=== PATIENT | male | born 1975 | race Caucasian/White ===

== ENCOUNTER 2017-01-08 22:11 | Emergency (ER) | payer OTHER ==
[~2017-01-08] VITALS: Ht 188 cm; Wt 77.6 kg
[~2017-01-08 22:11] MED LIST: CEPH500C3 PO
[2017-01-08 22:15] VITALS: BP 123/85; PULSE 95; RESP 18; TEMP 99.2; O2SAT 99
--- NOTE | 2017-01-08 22:22 | PD ---
HPI . Boil on back for 3 days Chief Complaint: Skin Problem Time Seen by Provider: 22:22 Travel History International Travel<30 days: No Contact w/Intl Traveler<30days: No Traveled to known affect area: No History of Present Illness HPI 41-year-old male with past medical history of anxiety and depression, Hodgkin's lymphoma and IV drug use issue here with complaints of a boil on his back for 3 days. He has had them in the past and had to have them lanced. He denies any recent insect bite or trauma to the area. He denies fever, chills, cough, cold symptoms, shortness of breath, nausea, vomiting, or abdominal pain. 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) Eye Surgery: No Genitourinary Surgery: No Gynecologic Surgery: No Oral Surgery: No Thoracic Surgery: Yes (NECK BIOPSY FOR CANCER OF LYMPH NODES) Other Surgery: Yes (MULTIPLE BIOPSYS- INFUSA PORTS PLASED AND REMOVEDx2) Social History Alcohol Use: Yes (OCCASIONAL) Tobacco Use: Yes (1/2 PPD) Substance Use: Yes (DILAUDID "RECENTLY, NOT EVERYDAY" 01/30) Allergies-Medications (Allergen,Severity, Reaction): Coded Allergies: Floxcin (Verified Allergy, Severe, Itching, 01/08/17) STATES HIS EYES GET ITCHY SWOLLEN AND RED Reported Meds & Prescriptions Reported Meds & Active Scripts Active Keflex (Cephalexin) 500 Mg Cap 500 Mg PO Q6H 10 Days Bactrim DS (Sulfamethoxazole-Trimethoprim) 800-160 Mg Tab 1 Tab PO BID Review of Systems General / Constitutional: No: Fever Eyes: No: Visual changes HENT: No: Headaches Cardiovascular: No: Chest Pain or Discomfort Respiratory: No: Shortness of Breath Gastrointestinal: No: Abdominal Pain Genitourinary: No: Dysuria Musculoskeletal: No: Pain Skin: Positive Other (abscess upper back), No Rash Neurologic: No: Weakness Psychiatric: No: Depression Endocrine: No: Polydipsia Hematologic/Lymphatic: No: Easy Bruising Physical Exam Narrative GENERAL: AAO x 3, no acute distress, Well-nourished, well-developed patient. SKIN: Warm and dry. No visible rashes or bruising. + abscess on the upper back, indurated, fluctuant, tender to touch, warm, erythematous HEAD: Normocephalic and atraumatic. EYES: No scleral icterus. No injection or drainage. ENT: No nasal drainage noted. Mucous membranes pink. Airway patent. NECK: Supple, trachea midline. No JVD. CARDIOVASCULAR: Regular rate and rhythm without murmurs, gallops, or rubs. RESPIRATORY: Breath sounds equal bilaterally. No accessory muscle use. No rhonchi or rales. GASTROINTESTINAL: Abdomen soft, non-tender, nondistended. EXTREMITIES: No cyanosis or edema. BACK: Nontender without obvious deformity. No CVA tenderness. PSYCH: AAO x 3, normal affect. After the risks and benefits were discussed the following procedure was performed: INCISION AND DRAINAGE OF ABSCESS: The area was prepped and was sterilely draped. A subcutaneous wheal of 1 % Xylocaine with a total number 5 mL was used to anesthetize the area. The area was properly anesthetized. A number 11 scalpel was used to make a 1-cm incision across the area of the abscess. Cultures were not obtained as red blood was only present. The abscess was drained an irrigated with normal saline. No packing applied. Sterile dressing applied. Advised to change dressing twice daily. Data Data Last Documented VS Vital Signs Date Time Temp Pulse Resp B/P Pulse Ox O2 Delivery O2 Flow Rate FiO2 01/08/17 22:20 01/08/17 22:15 99.2 95 18 99 Orders Lidocaine 1% Inj (50 Ml) (Xylocaine 1% I (01/08/17 22:30) Ketorolac Inj (Toradol Inj) (01/08/17 22:45) MDM Medical Decision Making Medical Screen Exam Complete: Yes Emergency Medical Condition: Yes Medical Record Reviewed: Yes (last admission for abscess requiring IV antibiotics) Differential Diagnosis abscess, cellulitis, less likely lipoma or sebaceous cyst Narrative Course 41-year-old male with past medical history of anxiety and depression, Hodgkin's lymphoma and IV drug use issue here with complaints of a boil on his back for 3 days. He has had them in the past and had to have them lanced. He denies any recent insect bite or trauma to the area. He denies fever, chills, cough, cold symptoms, shortness of breath, nausea, vomiting, or abdominal pain. ' Patient consented to I&D of abscess. patient given toradol for pain in ED. I & D performed. He tolerated without incident. start bactrim and keflex. Advised if area starts to worsen, to return to ED sooner. Patient verbalized understanding of instructions, questions were answered, and thanked me for their care. I advised them if their condition worsens, please return to the nearest emergency room for further care. Diagnosis Primary Impression: Cutaneous abscess of back [any part, except buttock] Additional Impressions: Cellulitis of upper back excluding scapular region Cellulitis of mid back region Patient Instructions: Abscess (ED), Cellulitis (ED), General Instructions Additional Instructions: As we discussed, start antibiotics immediately. If area starts to worsen, please come in again. If you develop fever or chills, come back to the emergency room. Keep area clean and change dressing twice a day. Scripts Cephalexin (Keflex)500 Mg Ubx400 Mg PO Q6H 10 Days Ref 0 Prov:Rebekah Lopez 01/08/17 Sulfamethoxazole-Trimethoprim (Bactrim DS)800-160 Mg Tab1 Tab PO BID #20 TAB Prov:Rebekah Lopez 01/08/17 Disposition: 01 DISCHARGE HOME Condition: Stable Rebekah Lopez Jan 08, 2017 22:22
[2017-01-08] MEDS ORDERED: CEPH-460 PO (22:30)
[2017-01-08] MEDS ORDERED: LIDOCAINE HCL 1% 50 ML VIAL INFIL ONE (22:30)
[2017-01-08] MEDS ORDERED: BACT800T5 PO (22:30)
[2017-01-08] MEDS ORDERED: KETOROLAC TROMETHAMINE 60 MG/2 ML (IM) VIAL IM ONE (22:45)
== END 2017-01-08 22:59 | disposition home or self-care (01) ==
LOC: PHEFT 22:11
DX: L02.212 Cutaneous abscess of back [any part, except buttock and flank] (principal); F41.8 Other specified anxiety disorders; F11.20 Opioid dependence, uncomplicated
CPT/HCPCS: 10060; 96372; 99283; J1885

== ENCOUNTER 2017-01-09 19:13 | Emergency (ER) | payer OTHER ==
[~2017-01-09] VITALS: Ht 188 cm; Wt 78.5 kg
[~2017-01-09 19:13] MED LIST changes: +BACT800T5 PO; +CEPH-460 PO
[2017-01-09 19:36] VITALS: BP 129/90; PULSE 108; RESP 18; TEMP 99.2; O2SAT 100
--- NOTE | 2017-01-09 19:50 | PD ---
HPI . seen yesterday for skin infection, has not filled antibiotics Chief Complaint: Skin Problem Time Seen by Provider: 19:45 Travel History International Travel<30 days: No Contact w/Intl Traveler<30days: No Traveled to known affect area: No History of Present Illness HPI 41-year-old male seen yesterday here in the ED by me with abscess status post I and D with minimal drainage here with complaints of pain. Patient states he has some social issues and does not have any transportation therefore he was unable to fill his antibiotics. He tells me he has no idea of when he will be able to get these medicines. He does live with his mother and she was able to change his dressing today; however he states he doesn't know if she will be able to pick his medications up as she works. He is requesting something for pain. He also wants a note for work. He says, "I can't believe I am not being admitted." I explained to him that he needs to get his medicines and he would get better. He states everyone has different social situations and he can't help it. 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) Eye Surgery: No Genitourinary Surgery: No Gynecologic Surgery: No Oral Surgery: No Thoracic Surgery: Yes (NECK BIOPSY FOR CANCER OF LYMPH NODES) Other Surgery: Yes (MULTIPLE BIOPSYS- INFUSA PORTS PLASED AND REMOVEDx2) Social History Alcohol Use: Yes (OCCASIONAL) Tobacco Use: Yes (1PK) Substance Use: Yes (DILAUDID "RECENTLY, NOT EVERYDAY" 01/30) Allergies-Medications (Allergen,Severity, Reaction): Coded Allergies: Floxcin (Verified Allergy, Severe, Itching, 01/09/17) STATES HIS EYES GET ITCHY SWOLLEN AND RED Reported Meds & Prescriptions Reported Meds & Active Scripts Active Keflex (Cephalexin) 500 Mg Cap 500 Mg PO Q6H 10 Days Bactrim DS (Sulfamethoxazole-Trimethoprim) 800-160 Mg Tab 1 Tab PO BID Physical Exam Narrative GENERAL: AAO x 3, no acute distress, Well-nourished, well-developed patient. SKIN: Warm and dry. No visible rashes or bruising. There is a superficial indurated area on the mid back without any fluctuance today. Surround erythema and swelling have lessened since yesterday.There is no evidence of purulent drainage. area is still warm to touch. no streaking present. dressing was c/d/i HEAD: Normocephalic and atraumatic. EYES: No scleral icterus. No injection or drainage. ENT: No nasal drainage noted. Mucous membranes pink. Airway patent. NECK: Supple, trachea midline. No JVD. CARDIOVASCULAR: Regular rate and rhythm without murmurs, gallops, or rubs. RESPIRATORY: Breath sounds equal bilaterally. No accessory muscle use. No rhonchi or rales. GASTROINTESTINAL: Abdomen soft, non-tender, nondistended. EXTREMITIES: No cyanosis or edema. BACK: Nontender without obvious deformity. No CVA tenderness. PSYCH: AAO x 3, normal affect. Data Data Last Documented VS Vital Signs Date Time Temp Pulse Resp B/P Pulse Ox O2 Delivery O2 Flow Rate FiO2 01/09/17 20:11 98.3 91 18 99 Room Air 01/09/17 19:44 Orders Ceftriaxone Inj (Rocephin Inj) (01/09/17 20:00) Lidocaine 1% Inj (50 Ml) (Xylocaine 1% I (01/09/17 20:00) Tramadol (Ultram) (01/09/17 20:15) MDM Medical Decision Making Medical Screen Exam Complete: Yes Emergency Medical Condition: Yes Medical Record Reviewed: Yes Differential Diagnosis superficial cellulitis, abscess collection, less likely systemic infection Narrative Course 41-year-old male seen yesterday here in the ED by me with abscess status post I and D with minimal drainage here with complaints of pain. Patient states he has some social issues and does not have any transportation therefore he was unable to fill his antibiotics. He tells me he has no idea of when he will be able to get these medicines. He does live with his mother and she was able to change his dressing today; however he states he doesn't know if she will be able to pick his medications up as she works. He is requesting something for pain. He also wants a note for work. He says, "I can't believe I am not being admitted." I explained to him that he needs to get his medicines and he would get better. He states everyone has different social situations and he can't help it. Patient seen and examined. Cellulitis/abscess is smaller than yesterday. still with surround erythema and warmth. Rocephin in ED today along with tramadol for pain. Advised to get rx filled. He states he still has prescriptions. Advised to use Ibuprofen for pain control. recheck temp 98.3, hr 91 (afebrile, no tachy, exam is improved from yesterday) no need for admission: stressed importance of getting medicines filled. Return in 2-3 days for recheck or f/u with primary care provider. Prior to leaving patient asks nurse for his medicines. He tells her that he cannot travel 2 miles to get them from [place]. He says he has no friends or family who can get them for him. He wanted to be admitted to get his medicines. He was told to try to get his meds and establish with the [facility] or [facility]. I am hoping he will get his antibiotics filled. If he returns for wound check and has not filled his meds. He will likely need to be admitted for antibiotics or given additional Rocephin. Diagnosis Primary Impression: Cellulitis of mid back region Patient Instructions: General Instructions Additional Instructions: Please return to emergency department if your symptoms return or worsen. Follow up with your primary care provider. Take medications as prescribed. PLEASE GET YOUR ANTIBIOTICS FILLED AND START THEM IMMEDIATELY. YOUR SKIN INFECTION WILL NOT IMPROVE IF YOU DO NOT TAKE THE MEDICINES. RETURN TO EMERGENCY DEPARTMENT IN 2-3 DAYS FOR A RECHECK OF THIS AREA. IF YOU DEVELOP FEVER OR STREAKING RETURN TO ED SOONER. Med/Other Pt SpecificInfo: No Change to Meds Disposition: 01 DISCHARGE HOME Condition: Stable Rebekah Lopez Jan 09, 2017 19:50
[2017-01-09] MEDS ORDERED: LIDOCAINE HCL 1% 50 ML VIAL XX ONE (20:00)
[2017-01-09 20:11] VITALS: PULSE 91; RESP 18; TEMP 98.3; O2SAT 99
[2017-01-09] MEDS ORDERED: traMADol HCL 50 MG TAB PO ONE (20:15)
== END 2017-01-09 20:40 | disposition home or self-care (01) ==
LOC: PHEFT 19:13
DX: L03.312 Cellulitis of back [any part except buttock and flank] (principal)
CPT/HCPCS: 96372; 99282; J0696

== ENCOUNTER 2017-03-14 19:18 | Emergency (ER) | payer OTHER ==
[~2017-03-14] VITALS: Ht 188 cm; Wt 80.0 kg
[~2017-03-14 19:18] MED LIST changes: -CEPH500C3 PO
[2017-03-14 19:45] VITALS: BP 128/81; PULSE 93; RESP 18; TEMP 98.2; O2SAT 98
[2017-03-14] MEDS ORDERED: SODIUM CHLOR 0.9% 1000 ML INJ 1,000 ML IV SCH (20:12)
--- NOTE | 2017-03-14 20:12 | PD ---
HPI Chief Complaint: Abdominal Pain Time Seen by Provider: 20:09 Travel History International Travel<30 days: No Contact w/Intl Traveler<30days: No Traveled to known affect area: No History of Present Illness HPI 42-year-old male presents to the emergency department for evaluation of one day of lower abdominal pain. Patient states he awakened this morning with discomfort which is progressively worsened. Patient had associated nausea without vomiting. Patient had associated diarrhea multiple episodes without gross blood or melena. Patient denies fever or chills. Does not report anorexia. Denies any dietary indiscretion well water ingestion or foreign travel. No other persons with similar symptoms. Patient rates pain 9-10 over 10 in intensity. Patient denies any referred pain to the groin testicles and denies any penile discharge. Patient denies dysuria frequency urgency hematuria or flank pain. Patient's had no respiratory illness symptoms. Patient is unable to identify exacerbating or alleviating factors. Patient has taken no medications. PFSH Past Medical History Narrative Medical Anxiety depression, Hodgkin's lymphoma w/ chemotherapy radiation therapy and remission 2007, [id number] insertion and removal, lymph node biopsy Anxiety: Yes Depression: Yes Cancer: Yes (LYMPH NODES) Cardiovascular Problems: No Chemotherapy: Yes (LYMPH NODE) Diminished Hearing: No Endocrine: No Genitourinary: No Musculoskeletal: No Neurologic: No Reproductive: No Respiratory: No Immunizations Current: Yes Radiation Therapy: Yes (LYMPH NODES) Tetanus Vaccination: < 5 Years Influenza Vaccination: Yes Past Surgical History 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) Eye Surgery: No Genitourinary Surgery: No Gynecologic Surgery: No Oral Surgery: No Thoracic Surgery: Yes (NECK BIOPSY FOR CANCER OF LYMPH NODES) Other Surgery: Yes (MULTIPLE BIOPSYS- INFUSA PORTS PLASED AND REMOVEDx2) Social History Alcohol Use: Yes (OCCASIONAL) Tobacco Use: Yes (1PK) Substance Use: Yes (DILAUDID "RECENTLY, NOT EVERYDAY" 01/30) Allergies-Medications (Allergen,Severity, Reaction): Coded Allergies: Floxcin (Verified Allergy, Severe, Itching, 03/14/17) STATES HIS EYES GET ITCHY SWOLLEN AND RED Reported Meds & Prescriptions Reported Meds & Active Scripts Active No Active Prescriptions or Reported Medications Review of Systems Except as stated in HPI: all other systems reviewed are Neg General / Constitutional: No: Fever, Chills Eyes: No: Visual changes HENT: No: Congestion Cardiovascular: No: Chest Pain or Discomfort Respiratory: No: Shortness of Breath Gastrointestinal: Positive: Nausea, Diarrhea, Abdominal Pain, No: Vomiting Genitourinary: No: Dysuria, Flank Pain Musculoskeletal: No: Myalgias, Arthralgias Skin: No Rash Neurologic: No: Weakness, Dizziness, Syncope, Focal Abnormalities, Coordination Problem Psychiatric: No: Anxiety Endocrine: No: Heat Intolerance Hematologic/Lymphatic: No: Easy Bruising Physical Exam Narrative GENERAL: Well-developed well-nourished female in no acute distress no respiratory distress SKIN: Warm and dry. HEAD: Normocephalic. EYES: No scleral icterus. No injection or drainage. NECK: Supple, trachea midline. No JVD or lymphadenopathy. CARDIOVASCULAR: Regular rate and rhythm without murmurs, gallops, or rubs. RESPIRATORY: Breath sounds equal bilaterally. No accessory muscle use. GASTROINTESTINAL: Abdomen soft, mildly diffusely tender without guarding or rebound, nondistended. MUSCULOSKELETAL: No cyanosis, or edema. BACK: Nontender without obvious deformity. No CVA tenderness. Data Data Last Documented VS Vital Signs Date Time Temp Pulse Resp B/P Pulse Ox O2 Delivery O2 Flow Rate FiO2 03/14/17 21:12 85 18 136/74 98 Room Air 03/14/17 19:45 98.2 Orders Complete Blood Count With Diff (03/14/17 20:12) Comprehensive Metabolic Panel (03/14/17 20:12) Lipase (03/14/17 20:12) Urinalysis - C+S If Indicated (03/14/17 20:12) Ct Abd/Pel W Iv Contrast(Rout) (03/14/17 20:12) Iv Access Insert/Monitor (03/14/17 20:12) Ecg Monitoring (03/14/17 20:12) Oximetry (03/14/17 20:12) Ondansetron Inj (Zofran Inj) (03/14/17 20:15) Pantoprazole Inj (Protonix Inj) (03/14/17 20:15) Sodium Chlor 0.9% 1000 Ml Inj (Ns 1000 M (03/14/17 20:12) Sodium Chloride 0.9% Flush (Ns Flush) (03/14/17 20:15) Iohexol 350 Inj (Omnipaque 350 Inj) (03/14/17 21:12) Labs Laboratory Tests Test 03/14/17 20:25 White Blood Count 8.7 TH/MM3 Red Blood Count 5.41 MIL/MM3 Hemoglobin 16.5 GM/DL Hematocrit 49.8 % Mean Corpuscular Volume 92.0 FL Mean Corpuscular Hemoglobin 30.5 PG Mean Corpuscular Hemoglobin 33.2 % Concent Red Cell Distribution Width 13.2 % Platelet Count 223 TH/MM3 Mean Platelet Volume 8.0 FL Neutrophils (%) (Auto) 67.3 % Lymphocytes (%) (Auto) 23.7 % Monocytes (%) (Auto) 6.8 % Eosinophils (%) (Auto) 1.4 % Basophils (%) (Auto) 0.8 % Neutrophils # (Auto) 5.8 TH/MM3 Lymphocytes # (Auto) 2.1 TH/MM3 Monocytes # (Auto) 0.6 TH/MM3 Eosinophils # (Auto) 0.1 TH/MM3 Basophils # (Auto) 0.1 TH/MM3 CBC Comment DIFF FINAL Differential Comment Sodium Level 140 MEQ/L Potassium Level 3.6 MEQ/L Chloride Level 103 MEQ/L Carbon Dioxide Level 28.8 MEQ/L Anion Gap 8 MEQ/L Blood Urea Nitrogen 7 MG/DL Creatinine 1.10 MG/DL Estimat Glomerular Filtration 74 ML/MIN Rate Random Glucose 88 MG/DL Calcium Level 9.0 MG/DL Total Bilirubin 0.3 MG/DL Aspartate Amino Transf 33 U/L (AST/SGOT) Alanine Aminotransferase 60 U/L (ALT/SGPT) Alkaline Phosphatase 38 U/L Total Protein 7.3 GM/DL Albumin 3.6 GM/DL Lipase 165 U/L MDM Medical Decision Making Medical Screen Exam Complete: Yes Emergency Medical Condition: Yes Medical Record Reviewed: Yes Interpretation(s) Vital Signs Date Time Temp Pulse Resp B/P Pulse Ox O2 Delivery O2 Flow Rate FiO2 03/14/17 21:12 85 18 136/74 98 Room Air 03/14/17 20:27 18 96 Room Air 03/14/17 19:56 18 03/14/17 19:45 98.2 93 18 128/81 98 Last Impressions Abdomen/Pelvis CT 03/14/172011 Signed Impressions: Service Date/Time: Tuesday, March 14, 2017 21:03 - CONCLUSION: 1. Mild atherosclerotic disease. Nicholas A. Germán, MD CBC & BMP Diagram 03/14/17 20:25 Differential Diagnosis Abdominal pain, colitis, gastroenteritis, UTI, urethritis, pancreatitis, atypical appendicitis also to consider gastritis peptic ulcer disease biliary colic Narrative Course IV access obtained specimens collected and sent for resulting patient administered Zofran and [address] abdomen and pelvis ordered Diagnosis Primary Impression: Gastroenteritis Referrals: Primary Care Physician call for appointment Patient Instructions: General Instructions Departure Forms: Tests/Procedures, Work Release Special Instructions: no work x 2 days Additional Instructions: Follow clear liquid diet for next 12-24 hours advance as tolerated to bland/ Chapo then regular diet avoiding fried and fatty foods Takes Zofran as prescribed as needed for nausea and/or vomiting Take acetaminophen/Tylenol as needed for fever 100.4F or greater or for minor pain Follow-up with your primary care provider call office in a.m. to schedule follow -up appointment Return to the emergency department for any concerns or change in condition Med/Other Pt SpecificInfo: Prescription(s) given Scripts Ondansetron Odt (Zofran Odt)4 Mg Tab4 Mg SL Q6HR PRN (Nausea/Vomiting) #10 TAB Ref 0 Prov:Sunitha Cheatham MD 03/14/17 Disposition: 01 DISCHARGE HOME Condition: Stable Sunitha Cheatham MD Mar 14, 2017 20:11
[2017-03-14] MEDS ORDERED: SODIUM CHLORIDE 0.9% FLUSH 10 ML FLUSH IV FLUSH PRN (20:15)
[2017-03-14] MEDS ORDERED: PANTOPRAZOLE SODIUM 40 MG VIAL IVP ONE (20:15)
[2017-03-14] MEDS ORDERED: ONDANSETRON HCL 4 MG/2 ML VIAL IVP ONE (20:15)
[2017-03-14 20:27] VITALS: RESP 18; O2SAT 96
[2017-03-14 20:35] LABS: AUTOMATED NEUTROPHIL # 5.8 TH/MM3 (1.8-7.7); BASOPHIL # 0.1 TH/MM3 (0-0.2); BASOPHIL % 0.8 % (0.0-2.0); EOSINOPHIL # 0.1 TH/MM3 (0-0.4); EOSINOPHIL % 1.4 % (0.0-4.0); HEMATOCRIT 49.8 % (39.0-51.0); HEMO FLAGS DIFF FINAL; LYMPH % 23.7 % (9.0-44.0); LYMPHOCYTE # 2.1 TH/MM3 (1.0-4.8); MEAN CORPUSCULAR HEMOGLOBIN 30.5 PG (27.0-34.0); MEAN CORPUSCULAR HGB CONC 33.2 % (32.0-36.0); MONO % 6.8 % (0.0-8.0); NEUT % 67.3 % (16.0-70.0); PLATELET COUNT 223 TH/MM3 (150-450); RED BLOOD COUNT 5.41 MIL/MM3 (4.50-5.90); RED CELL DISTRIBUTION WIDTH 13.2 % (11.6-17.2); WHITE BLOOD COUNT 8.7 TH/MM3 (4.0-11.0)
[2017-03-14 20:52] LABS: CHLORIDE 103 MEQ/L (98-107); POTASSIUM 3.6 MEQ/L (3.5-5.1); SODIUM (NA) 140 MEQ/L (136-145)
[2017-03-14 20:56] LABS: ANION GAP 8 MEQ/L (5-15); BICARBONATE 28.8 MEQ/L (21.0-32.0); BLOOD UREA NITROGEN 7 MG/DL (7-18)
[2017-03-14 20:59] LABS: ALT (GPT) 60 U/L (12-78); AST (GOT) 33 U/L (15-37); GLOMERULAR FILTRATION RATE 74 ML/MIN (>89)
[2017-03-14 21:01] LABS: TOTAL BILIRUBIN ADULT 0.3 MG/DL (0.2-1.0)
[2017-03-14 21:02] LABS: ALKALINE PHOSPHATASE 38 U/L (45-117)
[2017-03-14 21:12] VITALS: BP 136/74; PULSE 85; RESP 18; O2SAT 98
[2017-03-14] MEDS ORDERED: IOHEXOL 350 MG/ML 10 ML VIAL (for RAD DIAG) IV ONE (21:12)
--- NOTE | 2017-03-14 21:27 | RADHPO ---
EXAM DATE/TIME: 03/14/2017 21:03 [facility] COMPARISON: No previous studies available for comparison. INDICATIONS : Left abdominal pain. IV CONTRAST: 100 cc Omnipaque 350 (iohexol) IV ORAL CONTRAST: No oral contrast ingested. RADIATION DOSE: 7.80 CTDIvol (mGy) MEDICAL HISTORY : Lymphoma. SURGICAL HISTORY : None. ENCOUNTER: Initial ACUITY: 1 day PAIN SCALE: 10/10 LOCATION: Left abdomen. TECHNIQUE: Volumetric scanning of the abdomen and pelvis was performed. Using automated exposure control and ad justment of the mA and/or kV according to patient size, radiation dose was kept as low as reasonably achievable to obtain optimal diagnostic quality images. FINDINGS: LOWER LUNGS: The visualized lower lungs are clear. LIVER: Homogeneous density without lesion. There is no dilation of the biliary tree. No calcified gallston es. SPLEEN: Normal size without lesion. PANCREAS: Within normal limits. KIDNEYS: Normal in size and shape. There is no mass, stone or hydronephrosis. ADRENAL GLANDS: Within normal limits. VASCULAR: No aneurysm. Scattered atherosclerotic calcifications are noted of the aorta and iliac vessels. BOWEL/MESENTERY: The stomach, small bowel, and colon demonstrate no acute abnormality. There is no free intraperitone al air or fluid. ABDOMINAL WALL: Within normal limits. RETROPERITONEUM: There is no lymphadenopathy. BLADDER: No wall thickening or mass. REPRODUCTIVE: Within normal limits. INGUINAL: There is no lymphadenopathy or hernia. MUSCULOSKELETAL: Within normal limits for patient age. CONCLUSION: 1. Mild atherosclerotic disease. Nicholas Dunlap MD on March 14, 2017 at 21:24 Board Certified Radiologist. This report was verified electronically.
[2017-03-14] MEDS ORDERED: ZOFR4TAB3 SL (22:11)
[2017-03-14 22:25] VITALS: BP 126/70; PULSE 76; RESP 18; O2SAT 98
[2017-03-14 22:28] LABS: BLOOD, URINE NEG (NEG); GLUCOSE,URINE NEG (NEG); KETONE, URINE NEG (NEG); NITRITE,URINE NEG (NEG)
[2017-03-14 22:33] LABS: URINE COLOR YELLOW (YELLW/STRAW)
[2017-03-14 22:36] LABS: COMMENT (UR) CULT NOT INDICATED; CULTURE IF INDICATED CULT NOT INDICATED; SQUAMOUS EPITHELIAL CELL URINE 0-5 /hpf (0-5)
== END 2017-03-14 22:39 | disposition home or self-care (01) ==
LOC: PHED 19:18
DX: K52.9 Noninfective gastroenteritis and colitis, unspecified (principal); F17.210 Nicotine dependence, cigarettes, uncomplicated; F11.90 Opioid use, unspecified, uncomplicated
CPT/HCPCS: 74177; 80053; 81001; 83690; 85025; 96361; 96374; 96375; 99284; C9113; J2405; J7030; Q9967

== ENCOUNTER 2018-01-10 12:57 | Emergency (ER) | payer OTHER ==
[~2018-01-10] VITALS: Ht 188 cm; Wt 84.5 kg
[2018-01-10 12:57] VITALS: BP 141/85; PULSE 99; RESP 18; TEMP 98.6; O2SAT 97
[~2018-01-10 12:57] MED LIST changes: -BACT800T5 PO; -CEPH-460 PO; +ZOFR4TAB3 SL
[2018-01-10 14:05] LABS: BILIRUBIN, URINE NEG (NEG); BLOOD, URINE MOD (NEG); GLUCOSE,URINE NEG (NEG); KETONE, URINE NEG (NEG); NITRITE,URINE NEG (NEG); URINE COLOR YELLOW (YELLW/STRAW); URINE LEUKOCYTE ESTERASE NEG (NEG)
[2018-01-10] MEDS ORDERED: SODIUM CHLOR 0.9% 1000 ML INJ 1,000 ML IV SCH (14:24)
[2018-01-10] MEDS ORDERED: SODIUM CHLORIDE 0.9% FLUSH 10 ML FLUSH IV FLUSH PRN (14:30)
--- NOTE | 2018-01-10 14:54 | RADRPT ---
EXAM DATE/TIME: 01/10/2018 14:39 [facility] COMPARISON: No previous studies available for comparison. INDICATIONS : Hematuria, lower abdominal pressure, evaluate for renal calculi. ORAL CONTRAST: No oral contrast ingested. RADIATION DOSE: 7.78 CTDIvol (mGy) MEDICAL HISTORY : neck cancer SURGICAL HISTORY : None. ENCOUNTER: Initial ACUITY: 1 day PAIN SCALE: 2/10 LOCATION: Bilateral lower quadrant TECHNIQUE: Volumetric scanning of the abdomen and pelvis was performed. Using automated exposure control and ad justment of the mA and/or kV according to patient size, radiation dose was kept as low as reasonably achievable to obtain optimal diagnostic quality images. DICOM format image data is available electro nically for review and comparison. FINDINGS: LOWER LUNGS: The visualized lower lungs are clear. LIVER: Visualized portions are grossly unremarkable. SPLEEN: Visualized portions are grossly unremarkable. PANCREAS: Within normal limits. KIDNEYS: Normal in size and shape. There is no mass, stone, or hydronephrosis. ADRENAL GLANDS: Within normal limits. VASCULAR: There is no aortic aneurysm. BOWEL/MESENTERY: The stomach, small bowel, and colon demonstrate no acute abnormality. There is no free intraperitone al air or fluid. ABDOMINAL WALL: Within normal limits. RETROPERITONEUM: There is no lymphadenopathy. BLADDER: No wall thickening or mass. REPRODUCTIVE: Within normal limits. INGUINAL: There is no lymphadenopathy or hernia. MUSCULOSKELETAL: Within normal limits for patient age. CONCLUSION: No evidence of nephrolithiasis or hydronephrosis Dagoberto Almanzar MD on January 10, 2018 at 14:49 Board Certified Radiologist. This report was verified electronically.
[2018-01-10 15:34] LABS: AUTOMATED NEUTROPHIL # 5.9 TH/MM3 (1.8-7.7); BASOPHIL % 0.3 % (0.0-2.0); EOSINOPHIL # 0.1 TH/MM3 (0-0.4); EOSINOPHIL % 1.7 % (0.0-4.0); HEMATOCRIT 47.5 % (39.0-51.0); HEMOGLOBIN 17.2 GM/DL (13.0-17.0); LYMPHOCYTE # 1.5 TH/MM3 (1.0-4.8); MEAN CELL VOLUME 91.8 FL (80.0-100.0); MEAN CORPUSCULAR HEMOGLOBIN 33.3 PG (27.0-34.0); MEAN PLATELET VOLUME 7.4 FL (7.0-11.0); MONO % 9.6 % (0.0-8.0); MONOCYTE # 0.8 TH/MM3 (0-0.9); NEUT % 70.4 % (16.0-70.0); PLATELET COUNT 194 TH/MM3 (150-450); RED BLOOD COUNT 5.17 MIL/MM3 (4.50-5.90); RED CELL DISTRIBUTION WIDTH 13.2 % (11.6-17.2); WHITE BLOOD COUNT 8.4 TH/MM3 (4.0-11.0)
--- NOTE | 2018-01-10 15:39 | RADRPT ---
EXAM DATE/TIME: 01/10/2018 14:48 [place] COMPARISON: No previous studies available for comparison. INDICATIONS : Testicular lump. MEDICAL HISTORY : Lymphoma. IV drug use. Depression. Anxiety. SURGICAL HISTORY : Neck biopsy for cancer lymph nodes. Infusa ports placed and removed. Chemotherapy. Radiation therapy. ENCOUNTER: Initial ACUITY: >1 year PAIN SCORE: 0/10 LOCATION: Bilateral scrotum. MEASUREMENTS: RIGHT TESTICLE: 3.9 x 2.8 x 2.1cm LEFT TESTICLE: 2.3 x 3.1 x 2.4cm FINDINGS: RIGHT TESTICLE: Homogeneous echotexture without intratesticular mass. There is a 1.0 x 1.3 x 0.9 cm peripherally hype rechoic extratesticular mass without significant vascularity. Blood flow is symmetric and within norm al limits. No hydrocel. Small 4 x 3 x 3 mm epididymal cyst. Epididymis is otherwise unremarkable. Sm all varicocele. LEFT TESTICLE: Homogeneous echotexture without intra or extratesticular mass. Blood flow is symmetric and within no rmal limits. No hydrocele. Epididymis is within normal limits. Small varicocele. SCROTUM: Within normal limits. CONCLUSION: 1. Small 1.0 x 1.3 x 2.9 cm peripherally hyperechoic avascular extratesticular mass on the right. Par a testicular masses have a large differential diagnosis which include scrotal hematocele, spermatocel e and sperm cell granuloma amongst many etiologies. Clinical correlation for recent history of trauma is recommended. In the absence of correlative history, consider consultation and followup imaging on an outpatient basis. 2. Small bilateral varicoceles. 3. Small right epididymal cyst. Edwin Redman MD on January 10, 2018 at 15:29 Board Certified Radiologist. This report was verified electronically.
[2018-01-10 15:40] LABS: MEAN CORPUSCULAR HGB CONC 36.2 % (32.0-36.0)
[2018-01-10 15:52] LABS: ALBUMIN 4.3 GM/DL (3.4-5.0); ALT (GPT) 39 U/L (12-78); AST (GOT) 31 U/L (15-37); BICARBONATE 29.9 MEQ/L (21.0-32.0); BLOOD UREA NITROGEN 12 MG/DL (7-18); CALCIUM 9.2 MG/DL (8.5-10.1); CHLORIDE 101 MEQ/L (98-107); CREATININE 1.15 MG/DL (0.60-1.30); GLOMERULAR FILTRATION RATE 70 ML/MIN (>89); GLUCOSE,RANDOM 86 MG/DL (74-106); SODIUM (NA) 138 MEQ/L (136-145)
[2018-01-10 15:54] LABS: ALKALINE PHOSPHATASE 44 U/L (45-117); TOTAL BILIRUBIN ADULT 0.5 MG/DL (0.2-1.0); TOTAL PROTEIN 8.1 GM/DL (6.4-8.2)
[2018-01-10 15:58] LABS: PROTHROMBIN TIME - PATIENT 9.9 SEC (9.8-11.6)
--- NOTE | 2018-01-10 16:24 | PD ---
HPI Chief Complaint: Complaint Time Seen by Provider: 14:16 Travel History International Travel<30 days: No Contact w/Intl Traveler<30days: No Traveled to known affect area: No History of Present Illness HPI Patient is a 42 year old male who comes in complaining of blood in his urine. He says it started today. He says he is concerned he may have a kidney infection. He denies any pain. He denies any pain with urination. He denies any discharge. He says he has had a mass on his testicle for 8 years and has not noticed any change. He denies any fever or chills. He denies nausea or vomiting. He says he does not drink a lot of water, but drinks a lot of tea. He has not taken anything for his symptoms. Severity is mild to moderate. 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) Eye Surgery: No Genitourinary Surgery: No Gynecologic Surgery: No Oral Surgery: No Thoracic Surgery: Yes (NECK BIOPSY FOR CANCER OF LYMPH NODES) Other Surgery: Yes (MULTIPLE BIOPSYS- INFUSA PORTS PLASED AND REMOVEDx2) Social History Alcohol Use: Yes (OCCASIONAL) Tobacco Use: Yes (1PK) Substance Use: Yes (DILAUDID "RECENTLY, NOT EVERYDAY" 01/30) Allergies-Medications (Allergen,Severity, Reaction): Coded Allergies: ofloxacin (Unverified Allergy, Severe, Itching, 01/10/18) STATES HIS EYES GET ITCHY SWOLLEN AND RED Reported Meds & Prescriptions Reported Meds & Active Scripts Active No Active Prescriptions or Reported Medications Review of Systems Except as stated in HPI: all other systems reviewed are Neg General / Constitutional: No: Fever, Chills Eyes: No: Blurred Vision HENT: No: Headaches, Lightheadedness Cardiovascular: No: Chest Pain or Discomfort Respiratory: No: Shortness of Breath Gastrointestinal: No: Nausea, Vomiting, Abdominal Pain Genitourinary: Positive: Hematuria Skin: No Rash Neurologic: No: Weakness, Dizziness Physical Exam Narrative GENERAL: Awake and alert, in no acute distress. SKIN: Focused skin assessment warm/dry. HEAD: Atraumatic. Normocephalic. EYES: Pupils equal and round. No scleral icterus. ENT: Mucous membranes pink and moist. NECK: Trachea midline. No JVD. CARDIOVASCULAR: Regular rate and rhythm. No murmur appreciated. RESPIRATORY: No accessory muscle use. Clear to auscultation. Breath sounds equal bilaterally. GASTROINTESTINAL: Abdomen soft, non-tender, nondistended. No CVA tenderness. MUSCULOSKELETAL: No obvious deformities. No clubbing. No cyanosis. No edema. NEUROLOGICAL: Awake and alert. No obvious cranial nerve deficits. Motor grossly within normal limits. Normal speech. PSYCHIATRIC: Appropriate mood and affect; insight and judgment normal. Data Data Last Documented VS Vital Signs Date Time Temp Pulse Resp B/P (MAP) Pulse Ox O2 Delivery O2 Flow Rate FiO2 01/10/18 12:57 98.6 99 18 141/85 (103) 97 Room Air Orders Orders Urinalysis - C+S If Indicated (01/10/18 13:06) Gc And Chlamydia Pcr (01/10/18 13:06) Complete Blood Count With Diff (01/10/18 14:24) Comprehensive Metabolic Panel (01/10/18 14:24) Prothrombin Time / Inr (Pt) (01/10/18 14:24) Act Partial Throm Time (Ptt) (01/10/18 14:24) Ct Abd/Pel W/O Iv Contrast (01/10/18 14:24) Iv Access Insert/Monitor (01/10/18 14:24) Ecg Monitoring (01/10/18 14:24) Oximetry (01/10/18 14:24) Sodium Chlor 0.9% 1000 Ml Inj (Ns 1000 M (01/10/18 14:24) Sodium Chloride 0.9% Flush (Ns Flush) (01/10/18 14:30) Creatine Kinase (Cpk) (01/10/18 14:24) Us Testicles W Doppler (01/10/18 ) Mandatory Outpatient Referral (01/10/18 16:13) Ed Discharge Order (01/10/18 16:13) Labs Laboratory Tests Test 01/10/18 13:13 01/10/18 15:00 Urine Color YELLOW Urine Turbidity CLEAR Urine pH 7.0 Urine Specific [place] 1.014 Urine Protein NEG mg/dL Urine Glucose (UA) NEG mg/dL Urine Ketones NEG mg/dL Urine Occult Blood MOD Urine Nitrite NEG Urine Bilirubin NEG Urine Urobilinogen LESS THAN 2.0 MG/DL Urine Leukocyte Esterase NEG Urine RBC 44 /hpf Urine WBC 1 /hpf Microscopic Urinalysis Comment CULT NOT INDICATED White Blood Count 8.4 TH/MM3 Red Blood Count 5.17 MIL/MM3 Hemoglobin 17.2 GM/DL Hematocrit 47.5 % Mean Corpuscular Volume 91.8 FL Mean Corpuscular Hemoglobin 33.3 PG Mean Corpuscular Hemoglobin Concent 36.2 % Red Cell Distribution Width 13.2 % Platelet Count 194 TH/MM3 Mean Platelet Volume 7.4 FL Neutrophils (%) (Auto) 70.4 % Lymphocytes (%) (Auto) 18.0 % Monocytes (%) (Auto) 9.6 % Eosinophils (%) (Auto) 1.7 % Basophils (%) (Auto) 0.3 % Neutrophils # (Auto) 5.9 TH/MM3 Lymphocytes # (Auto) 1.5 TH/MM3 Monocytes # (Auto) 0.8 TH/MM3 Eosinophils # (Auto) 0.1 TH/MM3 Basophils # (Auto) 0.0 TH/MM3 CBC Comment AUTO DIFF Prothrombin Time 9.9 SEC Prothromb Time International Ratio 1.0 RATIO Activated Partial Thromboplast Time 26.7 SEC Blood Urea Nitrogen 12 MG/DL Creatinine 1.15 MG/DL Random Glucose 86 MG/DL Total Protein 8.1 GM/DL Albumin 4.3 GM/DL Calcium Level 9.2 MG/DL Alkaline Phosphatase 44 U/L Aspartate Amino Transf (AST/SGOT) 31 U/L Alanine Aminotransferase (ALT/SGPT) 39 U/L Total Bilirubin 0.5 MG/DL Sodium Level 138 MEQ/L Potassium Level 3.9 MEQ/L Chloride Level 101 MEQ/L Carbon Dioxide Level 29.9 MEQ/L Anion Gap 7 MEQ/L Estimat Glomerular Filtration Rate 70 ML/MIN Total Creatine Kinase 77 U/L [facility] Medical Decision Making Medical Screen Exam Complete: Yes Emergency Medical Condition: Yes Medical Record Reviewed: Yes Differential Diagnosis UTI vs renal stone vs testicular mass vs dehydration vs rhabdo Narrative Course Patient is a 42 year old male who comes in complaining of hematuria. Exam shows no acute abnormalities. IV established, labs sent. Labs show Creatinine within normal limits. CT abd/pelvis shows no acute abnormalities. Testicular ultrasound performed shows a small mass, suggests outpatient follow up. Last 24 hours Impressions Abdomen/Pelvis CT 01/10/18 1424 Signed Impressions: Service Date/Time: Wednesday, January 10, 2018 14:39 - CONCLUSION: No evidence of nephrolithiasis or hydronephrosis Dagoberto Almanzar MD Scrotum Ultrasound 01/10/18 0000 Signed Impressions: Service Date/Time: Wednesday, January 10, 2018 14:48 - CONCLUSION: 1. Small 1.0 x 1.3 x 2.9 cm peripherally hyperechoic avascular extratesticular mass on the right. Para testicular masses have a large differential diagnosis which include scrotal hematocele, spermatocele and sperm cell granuloma amongst many etiologies. Clinical correlation for recent history of trauma is recommended. In the absence of correlative history, consider consultation and followup imaging on an outpatient basis. 2. Small bilateral varicoceles. 3. Small right epididymal cyst. Edwin Redman MD Hgb is 17.2, likely dehydration. Given IVF. Advised to follow up with urology. Advised to return to the ED as needed for any worsening symptoms. Diagnosis Primary Impression: Hematuria Qualified Codes: R31.9 - Hematuria, unspecified Referrals: Sudarshan Jurado MD call for appointment Patient Instructions: General Instructions, Hematuria (ED) Additional Instructions: Follow up with urology regarding the blood in your urine and the mass on your testicle. Drink more fluids (water). Return to the ED as needed for any worsening symptoms. Scripts No Active Prescriptions or Reported Meds Disposition: DISCHARGE HOME Condition: Stable Mame Rabago MD Jan 10, 2018 16:24
== END 2018-01-10 16:41 | disposition home or self-care (01) ==
LOC: NEPD 12:57
DX: R31.9 Hematuria, unspecified (principal); Z72.0 Tobacco use
CPT/HCPCS: 74176; 76870; 80053; 81001; 82550; 85025; 85610; 85730; 87491; 87591; 93975; 96360; 99285; J7030

== ENCOUNTER 2018-05-09 22:01 | Inpatient (IN) | payer OTHER ==
[~2018-05-09] VITALS: Ht 188 cm; Wt 84.5 kg
[2018-05-09 22:22] VITALS: BP 125/76; PULSE 98; RESP 16; TEMP 99; O2SAT 98
[2018-05-09] MEDS ORDERED: SODIUM CHLOR 0.9% 1000 ML INJ 1,000 ML IV ONE (23:00)
[2018-05-09] MEDS ORDERED: PIPERACIL-TAZO 3.375 GM PREMIX 50 ML IV ONE (23:00)
[2018-05-09] MEDS ORDERED: VANCOMYCIN INJ 1,000 MG in SODIUM CHLOR 0.9% 250 ML INJ 250 ML IV ONE (23:00)
--- NOTE | 2018-05-09 23:01 | PD ---
HPI Chief Complaint: Skin Problem Time Seen by Provider: 22:40 Travel History International Travel<30 days: No Contact w/Intl Traveler<30days: No Traveled to known affect area: No History of Present Illness HPI The patient is a 43 year old male who presents to the [facility] emergency department with a history of noticing a lump on his perineal area yesterday. He reports that since first noticing it it has become larger and is painful. He denies having any drainage from the site. He denies having any dysuria, hematuria, urinary urgency, or frequency. He denies having any testicle pain or swelling. He denies having any penile discharge. The patient reports that he has had skin infections in the past, however he was using IV drugs at that time. He reports that he has not used IV drugs for the last 2 years. He denies having any difficulty moving his bowels with this. He reports that he last moved his bowels earlier this morning. He denies having any blood or mucus in his stool. He denies having any known fevers or chills. He denies having any nausea, vomiting, or diarrhea. On review of systems otherwise, the patient denies having any cough, congestion, neck pain, chest pain, shortness of breath, abdominal pain, or neurologic symptoms. [facility] Past Medical History Narrative Medical The patient's past medical history is significant for history of remote IV drug use, reportedly last 2 years ago, anxiety and depression, abnormal lymph node status post treatment. Anxiety: Yes Depression: Yes Cancer: Yes (LYMPH NODES) Cardiovascular Problems: No Chemotherapy: Yes (LYMPH NODE) Diminished Hearing: No Endocrine: No Genitourinary: No Musculoskeletal: No Neurologic: No Reproductive: No Respiratory: No Immunizations Current: Yes Radiation Therapy: Yes (LYMPH NODES) Past Surgical History Narrative Surgical The patient has a history of [id number] placement and removal related to cancer involving his lymph node, biopsy of the lymph node. 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) Eye Surgery: No Genitourinary Surgery: No Gynecologic Surgery: No Oral Surgery: No Thoracic Surgery: Yes (NECK BIOPSY FOR CANCER OF LYMPH NODES) Other Surgery: Yes (MULTIPLE BIOPSYS- INFUSA PORTS PLASED AND REMOVEDx2) Social History Alcohol Use: Yes (OCCASIONAL) Tobacco Use: Yes (1PK) Substance Use: No Allergies-Medications (Allergen,Severity, Reaction): Coded Allergies: ofloxacin (Unverified Allergy, Severe, Itching, 05/09/18) STATES HIS EYES GET ITCHY SWOLLEN AND RED Reported Meds & Prescriptions Reported Meds & Active Scripts Active No Active Prescriptions or Reported Medications Review of Systems Except as stated in HPI: all other systems reviewed are Neg General / Constitutional: No: Fever, Chills Eyes: No: Visual changes HENT: No: Headaches Cardiovascular: No: Chest Pain or Discomfort, Dyspnea on exertion Respiratory: No: Shortness of Breath Gastrointestinal: No: Nausea, Vomiting, Diarrhea, Abdominal Pain Genitourinary: No: Dysuria Musculoskeletal: No: Pain Skin: Positive Lumps, No Rash Neurologic: No: Weakness Psychiatric: No: Depression Endocrine: No: Polydipsia Hematologic/Lymphatic: No: Easy Bruising Physical Exam Narrative General: The patient is a well-developed well-nourished male in no acute distress. Head and Neck exam: Head is normocephalic atraumatic. Eyes: EOMI, pupils are equal round and reactive to light. Nose: Midline septum with pink mucous membranes Mouth: Dentition unremarkable. Moist mucus membranes. Posterior oropharynx is not erythematous. No tonsillar hypertrophy. Uvula midline. Airway patent. Neck: No palpable lymphadenopathy. No nuchal rigidity. No thyromegaly. Cardiovascular: Regular rate and rhythm without murmurs, gallops, or rubs. No pulse deficit to the extremities on simultaneous auscultation and palpation of his radial artery. Lungs: Clear to auscultation bilaterally. No wheezes, rhonchi, or rales. Abdomen: Soft, without tenderness to palpation in all 4 quadrants of the abdomen. No guarding, rebound, or rigidity. Normal bowel sounds are audible. No tenderness on palpation of McBurney's point. Extremities: No clubbing, cyanosis, or edema. 2+ pulses in all 4 extremities. No calf tenderness on palpation. Back: No spinous process tenderness to palpation. No costovertebral angle tenderness to palpation. Neurologic Exam: Grossly nonfocal.. Skin Exam: No rash noted. Intact skin that is warm and dry. Genital exam: The patient is a circumcised male. No genital lesions or rash noted. No scrotal swelling or pain on palpation. No palpable testicle masses or tenderness on palpation. No palpable hernia. The area of interest that is tender to palpation is the perineum. There is an area of swelling with slight redness noted, no significant fluctuance or pointing noted along the perineum. RECTAL EXAM: No masses or tenderness, stool is brown. The patient has no palpable connection to the area of swelling and tenderness between the rectum and the perineum with palpation on rectal exam Data Data Last Documented VS Vital Signs Date Time Temp Pulse Resp B/P (MAP) Pulse Ox O2 Delivery O2 Flow Rate FiO2 05/09/18 22:22 99.0 98 16 125/76 (92) 98 Orders Orders Us Soft Tissue (05/09/18 ) Complete Blood Count With Diff (05/09/18 22:55) Comprehensive Metabolic Panel (05/09/18 22:55) Blood Culture (05/09/18 22:55) C-Reactive Protein (Crp) (05/09/18 22:55) Urinalysis - C+S If Indicated (05/09/18 22:55) Iv Access Insert/Monitor (05/09/18 22:55) Ecg Monitoring (05/09/18 22:55) Oximetry (05/09/18 22:55) Drug Screen, Random Urine (05/09/18 22:55) Lactic Acid Sepsis Protocol (05/09/18 22:55) Sodium Chlor 0.9% 1000 Ml Inj (Ns 1000 M (05/09/18 23:00) Vancomycin Inj (Vancomycin Inj) (05/09/18 23:00) Piperacil-Tazo 3.375 Gm Premix (Zosyn 3. (05/09/18 23:00) Ct Pelvis W Iv Contrast(Rout) (05/10/18 ) Iohexol 350 Inj (Omnipaque 350 Inj) (05/10/18 01:22) Admit Order (Ed Use Only) (05/10/18 01:30) Consult Urology (05/10/18 ) Ketorolac Inj (Toradol Inj) (05/10/18 01:45) Labs Laboratory Tests Test 05/09/18 23:00 White Blood Count 12.6 TH/MM3 Red Blood Count 4.91 MIL/MM3 Hemoglobin 16.3 GM/DL Hematocrit 45.3 % Mean Corpuscular Volume 92.3 FL Mean Corpuscular Hemoglobin 33.1 PG Mean Corpuscular Hemoglobin Concent 35.9 % Red Cell Distribution Width 13.8 % Platelet Count 165 TH/MM3 Mean Platelet Volume 8.0 FL Neutrophils (%) (Auto) 64.8 % Lymphocytes (%) (Auto) 22.1 % Monocytes (%) (Auto) 11.8 % Eosinophils (%) (Auto) 1.1 % Basophils (%) (Auto) 0.2 % Neutrophils # (Auto) 8.2 TH/MM3 Lymphocytes # (Auto) 2.8 TH/MM3 Monocytes # (Auto) 1.5 TH/MM3 Eosinophils # (Auto) 0.1 TH/MM3 Basophils # (Auto) 0.0 TH/MM3 CBC Comment DIFF FINAL Differential Comment Blood Urea Nitrogen 14 MG/DL Creatinine 1.06 MG/DL Random Glucose 86 MG/DL Total Protein 7.8 GM/DL Albumin 4.3 GM/DL Calcium Level 8.8 MG/DL Alkaline Phosphatase 43 U/L Aspartate Amino Transf (AST/SGOT) 26 U/L Alanine Aminotransferase (ALT/SGPT) 45 U/L Total Bilirubin 0.6 MG/DL Sodium Level 139 MEQ/L Potassium Level 3.7 MEQ/L Chloride Level 104 MEQ/L Carbon Dioxide Level 25.1 MEQ/L Anion Gap 10 MEQ/L Estimat Glomerular Filtration Rate 77 ML/MIN Lactic Acid Level 0.7 mmol/L C-Reactive Protein 2.70 MG/DL MDM Medical Decision Making Medical Screen Exam Complete: Yes Emergency Medical Condition: Yes Medical Record Reviewed: Yes Differential Diagnosis Abscess, versus cellulitis, versus Cecilio's gangrene Narrative Course During the course of the patient's emergency department visit, the patient's history, examination, and differential diagnosis were reviewed with the patient. The patient was placed on a delicatessen goods stock clerk with oximetry and frequent blood pressure monitoring. The patient had IV access obtained and blood work sent for analysis. The patient was initially provided the patient was given normal saline 1 L IV fluid bolus. The patient was given ketorolac 15 mg IV for pain. The patient was started on broad-spectrum antibiotic to include Zosyn and vancomycin. The patient's laboratory studies were reviewed and remarkable for Total Protein 7.8, Albumin 4.3, Calcium Level 8.8, Alkaline Phosphatase 43 L, Aspartate Amino Transf (AST/SGOT) 26, Alanine Aminotransferase (ALT/SGPT) 45, Total Bilirubin 0.6 the patient's CRP was elevated, however his lactic acid was within normal limits. . Radiology studies were reviewed and remarkable for Last Impressions Pelvis CT 05/10/18 Signed Impressions: CONCLUSION: 1. Some thickening of the subcutaneous fat with a questionable fluid collectio n is seen on the single image (image 70, series 602) Soft Tissue Ultrasound 05/09/18 0000 Signed Impressions: CONCLUSION: 1. Marked soft tissue swelling along the perineum. No drainable abscess The patient's results were discussed with the patient, including the plan of care. I explained that further testing and/ or monitoring is indicated based on the patient's history, examination, and/ or laboratory findings. Therefore, I recommended admission for additional evaluation. The patient expressed understanding and was agreeable with this plan. The patient was admitted to the hospital in stable condition and sent to a bed under the care of the [facility] service. Sepsis Criteria SIRS Criteria (2 or more): Heart rate over 90, WBC > 18667, < 4000 or > 10% bands Sepsis Criteria (SIRS+source): Infect source susp/known Physician Communication Physician Communication The patient's case including history, pertinent physical examination findings, and laboratory studies were discussed with Dr. Sung. It was agreed that the patient would be admitted to the [facility] service. Diagnosis Primary Impression: Cellulitis of perineum Admitting Information Admitting Physician Requests: Admit Scripts No Active Prescriptions or Reported Aline Dukes MD May 09, 2018 23:01
[2018-05-09 23:17] LABS: AUTOMATED NEUTROPHIL # 8.2 TH/MM3 (1.8-7.7); BASOPHIL % 0.2 % (0.0-2.0); EOSINOPHIL # 0.1 TH/MM3 (0-0.4); EOSINOPHIL % 1.1 % (0.0-4.0); HEMATOCRIT 45.3 % (39.0-51.0); HEMOGLOBIN 16.3 GM/DL (13.0-17.0); LYMPH % 22.1 % (9.0-44.0); LYMPHOCYTE # 2.8 TH/MM3 (1.0-4.8); MEAN CELL VOLUME 92.3 FL (80.0-100.0); MEAN CORPUSCULAR HEMOGLOBIN 33.1 PG (27.0-34.0); MEAN CORPUSCULAR HGB CONC 35.9 % (32.0-36.0); MONO % 11.8 % (0.0-8.0); MONOCYTE # 1.5 TH/MM3 (0-0.9); NEUT % 64.8 % (16.0-70.0); PLATELET COUNT 165 TH/MM3 (150-450); RED BLOOD COUNT 4.91 MIL/MM3 (4.50-5.90); RED CELL DISTRIBUTION WIDTH 13.8 % (11.6-17.2); WHITE BLOOD COUNT 12.6 TH/MM3 (4.0-11.0)
--- NOTE | 2018-05-09 23:42 | RADRPT ---
EXAM DATE: 05/09/2018 11:32 PM EDT AGE/SEX: 43 years / Male INDICATIONS: Painful lump in perineum. CLINICAL DATA: This is the patient's initial encounter. Patient reports that signs and symptoms have been present for 2 days and indicates a pain score of 10/10. Location: Laterality: MEDICAL/SURGICAL HISTORY: Lymphoma. . Chemotherapy and Radiation for Lymphoma. COMPARISON: No prior exams available for comparison. FINDINGS: There is very impressive soft tissue edema. No drainable fluid collections identified. CONCLUSION: 1. Marked soft tissue swelling along the perineum. No drainable abscess Electronically signed by: Lg Sepulveda MD 05/09/2018 11:41 PM EDT
[2018-05-09 23:45] LABS: ALKALINE PHOSPHATASE 43 U/L (45-117); ALT (GPT) 45 U/L (12-78); TOTAL BILIRUBIN ADULT 0.6 MG/DL (0.2-1.0); TOTAL PROTEIN 7.8 GM/DL (6.4-8.2)
[2018-05-09 23:53] LABS: ALBUMIN 4.3 GM/DL (3.4-5.0); AST (GOT) 26 U/L (15-37); BICARBONATE 25.1 MEQ/L (21.0-32.0); BLOOD UREA NITROGEN 14 MG/DL (7-18); CALCIUM 8.8 MG/DL (8.5-10.1); CHLORIDE 104 MEQ/L (98-107); CREATININE 1.06 MG/DL (0.60-1.30); GLOMERULAR FILTRATION RATE 77 ML/MIN (>89); GLUCOSE,RANDOM 86 MG/DL (74-106); SODIUM (NA) 139 MEQ/L (136-145)
[2018-05-10] MEDS ORDERED: IOHEXOL 350 MG/ML 10 ML VIAL (for RAD DIAG) IVCONTRAST ONE (01:22)
--- NOTE | 2018-05-10 01:25 | RADRPT ---
EXAM DATE: 05/10/2018 1:16 AM EDT AGE/SEX: 43 years / Male INDICATIONS: Pain in perineum. CLINICAL DATA: This is the patient's initial encounter. Patient reports that signs and symptoms have been present for 1 day and indicates a pain score of 5/10. MEDICAL/SURGICAL HISTORY: None. None. RADIATION DOSE: 10.55 CTDI (mGy) COMPARISON: No prior exams available for comparison. TECHNIQUE: Multiple contiguous helical axial images were obtained through pelvis following bolus inf usion of 75 ml Omnipaque 350 (iohexol) nonionic water-soluble contrast as a single exam dose. Imag es were obtained using multiple row detector helical technique. . Using automated exposure control an d adjustment of the mA and/or kV according to patient size, radiation dose was kept as low as reasona ashley achievable to obtain optimal diagnostic quality images. DICOM format image data is available boaz ctronically for review and comparison. FINDINGS: There does appear to be marked soft tissue thickening in the midline in the perineum with a very questionable area of fluid measuring 7 x 17 mm across. Bowel/Mesentery: The bowel loops are grossly unremarkable. The sigmoid colon has a normal configura tion. Bladder: Contours are smooth. No filling defects are seen on the delayed images. Retroperitoneum: No evidence of deep pelvic adenopathy. Reproductive Organs: No abnormal masses or calcifications seen. Inguinal: The inguinal region is unremarkable without evidence of adenopathy. Bony Structures: Unremarkable. Free Fluid: None seen. Post Contrast: No abnormal areas of enhancement seen. CONCLUSION: 1. Some thickening of the subcutaneous fat with a questionable fluid collection is seen on the singl e image (image 70, series 602) Electronically signed by: Lg Sepulveda MD 05/10/2018 1:24 AM EDT
[2018-05-10] MEDS ORDERED: SENNOSIDES 8.6 MG TAB PO PRN (01:45)
[2018-05-10] MEDS ORDERED: LACTULOSE SYRUP 20 GM/30 ML CUP PO PRN (01:45)
[2018-05-10] MEDS ORDERED: NALOXONE HCL 0.4 MG/ML AMP IV PUSH PRN (01:45)
[2018-05-10] MEDS ORDERED: SODIUM CHLORIDE 0.9% FLUSH 10 ML FLUSH IV FLUSH PRN (01:45)
[2018-05-10] MEDS ORDERED: KETOROLAC TROMETHAMINE 30 MG/ML (IVP) VIAL IV PUSH ONE (01:45)
[2018-05-10] MEDS ORDERED: ACETAMINOPHEN 325 MG TAB PO PRN (01:45)
[2018-05-10] MEDS ORDERED: MAGNESIUM HYDROXIDE SUSP 30 ML CUP PO PRN (01:45)
[2018-05-10] MEDS ORDERED: BISACODYL 10 MG SUPP RECTAL PRN (01:45)
[2018-05-10] MEDS ORDERED: ACETAMINOPHEN/HYDROcodone 325 MG/5 MG TAB PO PRN (01:45)
[2018-05-10] MEDS ORDERED: Vancomycin Consult Pharmacy 1 EA OTHER SCH (01:45)
[2018-05-10] MEDS ORDERED: VANCOMYCIN 1,000 MG/NS 250 ML IV ONE ×2 (02:00)
[2018-05-10 03:02] VITALS: BP 111/66; PULSE 75; RESP 17; TEMP 98.6; O2SAT 97
[2018-05-10 03:12] LABS: BACTERIA, URINE RARE /hpf; BILIRUBIN, URINE NEG (NEG); BLOOD, URINE NEG (NEG); GLUCOSE,URINE NEG (NEG); KETONE, URINE NEG (NEG); NITRITE,URINE NEG (NEG); URINE COLOR Straw (YELLW/STRAW); URINE LEUKOCYTE ESTERASE NEG (NEG)
[2018-05-10] MEDS: SODIUM CHLOR 0.9% 1000 ML INJ 1,000 ML IV SCH ×3 (03:28→22:00)
[2018-05-10] MEDS: PIPERACIL-TAZO 4.5 GM PREMIX 100 ML IV SCH ×3 (06:33→18:16)
[2018-05-10 08:00] VITALS: BP 123/80; PULSE 83; RESP 18; TEMP 97.3; O2SAT 98
--- NOTE | 2018-05-10 08:28 | HHI.HP ---
HPI Service CP Hospitalists Primary Care Physician No Primary Care Physician Admission Diagnosis Penineal Cellulitis Chief Complaint: "lump" in perineal area Travel History International Travel<30 Days: No Contact w/Intl Traveler <30 Da: No Traveled to Known Affected Are: No History of Present Illness This a 43-year-old male patient with past medical history which includes Hodgkin 's lymphoma in remission, with hx IV drug abuse used Dilaudid, last injected 1- 2 years ago. Patient presented through the night to [facility] emergency department after noticing a lump on his perineal area Tuesday. Patient reports the area has gotten larger and more painful therefore he proceeded to the emergency department for further evaluation and treatment. 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 Patient denies having any drainage from the site and also denies injecting IV drugs at this area. Patient denies having any hematuria dysuria increased urinary frequency or urgency, difficulties with moving his bowels. Patient also denies fevers chills nausea vomiting diarrhea constipation shortness of breath or chest pain. 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 Past Surgical History hx infusa port placed and removed 2 abscess with I&D Reported Medications No Active Prescriptions or Reported Medications Allergies: Coded Allergies: ofloxacin (Unverified Allergy, Severe, Itching, 05/09/18) STATES HIS EYES GET ITCHY SWOLLEN AND RED Family History Reviewed and noncontributory Social History EtOH use occasionally not on a daily basis Smokes one half pack cigarettes per day History of IV drug use reports he last used 2 years ago did use Dilaudid at that time Physical Exam Vital Signs Vital Signs Date Time Temp Pulse Resp B/P (MAP) Pulse Ox O2 Delivery O2 Flow Rate FiO2 05/10/18 03:02 98.6 75 17 111/66 (81) 97 05/09/18 22:22 99.0 98 16 125/76 (92) 98 Physical Exam GENERAL: This is a well-nourished, well-developed patient, in no apparent distress. SKIN: 5cm x 2 cm raised indurated perineal area. Multiple tattoos through out body including neck HEAD: Atraumatic. Normocephalic. No temporal or scalp tenderness. EYES: Extraocular motions intact. No scleral icterus. No injection or drainage. CARDIOVASCULAR: Regular rate and rhythm RESPIRATORY: Clear to auscultation. Breath sounds equal bilaterally. GASTROINTESTINAL: Abdomen soft, non-tender, nondistended. MUSCULOSKELETAL: Extremities without clubbing, cyanosis, or edema. No joint tenderness, effusion, or edema noted. No calf tenderness. Negative Homans sign bilaterally. NEUROLOGICAL: Awake and alert. No focal deficits appreciated. Motor and sensory grossly within normal limits. Five out of 5 muscle strength in all muscle groups. Normal speech. Laboratory Laboratory Tests Test 05/09/18 23:00 05/10/18 02:17 White Blood Count 12.6 Red Blood Count 4.91 Hemoglobin 16.3 Hematocrit 45.3 Mean Corpuscular Volume 92.3 Mean Corpuscular Hemoglobin 33.1 Mean Corpuscular Hemoglobin Concent 35.9 Red Cell Distribution Width 13.8 Platelet Count 165 Mean Platelet Volume 8.0 Neutrophils (%) (Auto) 64.8 Lymphocytes (%) (Auto) 22.1 Monocytes (%) (Auto) 11.8 Eosinophils (%) (Auto) 1.1 Basophils (%) (Auto) 0.2 Neutrophils # (Auto) 8.2 Lymphocytes # (Auto) 2.8 Monocytes # (Auto) 1.5 Eosinophils # (Auto) 0.1 Basophils # (Auto) 0.0 CBC Comment DIFF FINAL Differential Comment Blood Urea Nitrogen 14 Creatinine 1.06 Random Glucose 86 Total Protein 7.8 Albumin 4.3 Calcium Level 8.8 Alkaline Phosphatase 43 Aspartate Amino Transf (AST/SGOT) 26 Alanine Aminotransferase (ALT/SGPT) 45 Total Bilirubin 0.6 Sodium Level 139 Potassium Level 3.7 Chloride Level 104 Carbon Dioxide Level 25.1 Anion Gap 10 Estimat Glomerular Filtration Rate 77 Lactic Acid Level 0.7 C-Reactive Protein 2.70 Urine Color Straw Urine Turbidity CLEAR Urine pH 6.0 Urine Specific [place] 1.013 Urine Protein NEG Urine Glucose (UA) NEG Urine Ketones NEG Urine Occult Blood NEG Urine Nitrite NEG Urine Bilirubin NEG Urine Urobilinogen LESS THAN 2 Urine Leukocyte Esterase NEG Urine RBC LESS THAN 1 Urine WBC LESS THAN 1 Urine Bacteria RARE Microscopic Urinalysis Comment CULT NOT INDICATED Urine Opiates Screen NEG Urine Barbiturates Screen NEG Urine Amphetamines Screen NEG Urine Benzodiazepines Screen NEG Urine Cocaine Screen NEG Urine Cannabinoids Screen NEG Date/Time Source Procedure Growth Status 05/09/18 23:00 Blood Peripheral Aerobic Blood Culture Pending Received 05/09/18 23:00 Blood Peripheral Anaerobic Blood Culture Pending Received Result Diagram: 05/09/18 2300 05/09/18 2300 Imaging Last Impressions Pelvis CT 05/10/18 0000 Signed Impressions: CONCLUSION: 1. Some thickening of the subcutaneous fat with a questionable fluid collectio n is seen on the single image (image 70, series 602) Soft Tissue Ultrasound 05/09/18 0000 Signed Impressions: CONCLUSION: 1. Marked soft tissue swelling along the perineum. No drainable abscess Caprini VTE Risk Assessment Caprini VTE Risk Assessment: No/Low Risk (score <= 1) Caprini Risk Assessment Model Point Value = 1 Point Value = 2 Point Value = 3 Point Value = 5 Age 41-60 Minor surgery BMI > 25 kg/m2 Swollen legs Varicose veins or History of unexplained or recurrent spontaneous Oral contraceptives or hormone replacement Sepsis (< 1 month) Serious lung disease, including pneumonia (< 1 month) Abnormal pulmonary function Acute myocardial infarction Congestive heart failure (< 1 month) History of inflammatory bowel disease Medical patient at bed rest Age 61-74 Arthroscopic surgery Major open surgery (> 45 min) Laparoscopic surgery (> 45 min) Malignancy Confined to bed (> 72 hours) Immobilizing plaster cast Central venous access Age >= 75 History of VTE Family history of VTE Factor V Leiden Prothrombin [id number] Lupus anticoagulant Anticardiolipin antibodies Elevated serum homocysteine Heparin-induced thrombocytopenia Other congenital or acquired thrombophilia Stroke (< 1 month) Elective arthroplasty Hip, pelvis, or leg fracture Acute spinal cord injury (< 1 month) Prophylaxis Regimen Total Risk Factor Score Risk Level Prophylaxis Regimen 0-1 Low Early ambulation 2 Moderate Order ONE of the following: *Sequential Compression Device (SCD) *Heparin 5000 units SQ BID 3-4 Higher Order ONE of the following medications: *Heparin 5000 units SQ TID *Enoxaparin/Lovenox 40 mg SQ daily (WT < 150 kg, CrCl > 30 mL/min) *Enoxaparin/Lovenox 30 mg SQ daily (WT < 150 kg, CrCl > 10-29 mL/min) *Enoxaparin/Lovenox 30 mg SQ BID (WT < 150 kg, CrCl > 30 mL/min) AND/OR *Sequential Compression Device (SCD) 5 or more Highest Order ONE of the following medications: *Heparin 5000 units SQ TID (Preferred with Epidurals) *Enoxaparin/Lovenox 40 mg SQ daily (WT < 150 kg, CrCl > 30 mL/min) *Enoxaparin/Lovenox 30 mg SQ daily (WT < 150 kg, CrCl > 10-29 mL/min) *Enoxaparin/Lovenox 30 mg SQ BID (WT < 150 kg, CrCl > 30 mL/min) AND *Sequential Compression Device (SCD) Assessment and Plan Problem List: (1) Cellulitis of perineum ICD Codes: L03.315 - Cellulitis of perineum Plan: 43-year-old male patient presents emergency department with reports of a bump in his perineal area 1 day Patient started on vancomycin and Zosyn in the emergency department We will continue IV antibiotics Vancomycin and Zosyn Consult urology [place] as needed for pain SCDs for DVT prophylaxis (2) H/O Hodgkin's lymphoma ICD Codes: Z85.71 - Personal history of Hodgkin lymphoma Status: Acute Plan: Patient history of Hodgkin's lymphoma currently in remission Assessment and Plan Patient examined. Assessment and plan formulated with Giulia Lopez PA-C. I agree with the above. Physician Certification 2 Midnight Certification Type: Admission for Inpatient Services Order for Inpatient Services The services are ordered in accordance with Medicare regulations or non- Medicare payer requirements, as applicable. In the case of services not specified as inpatient-only, they are appropriately provided as inpatient services in accordance with the 2-midnight benchmark. Estimated LOS (days): 4 days is the estimated time the patient will need to remain in the hospital, assuming treatment plan goals are met and no additional complications. Post-Hospital Plan: [place] Giulia Lopez May 10, 2018 08:28 Tejinder Figueroa DO May 12, 2018 15:33
[2018-05-10] MEDS: DOCUSATE SODIUM 50 MG/SENNA 8.6 MG TAB PO SCH ×2 (09:00→21:00)
[2018-05-10] MEDS: SODIUM CHLORIDE 0.9% FLUSH 10 ML FLUSH IV FLUSH SCH ×2 (09:00→21:00)
[2018-05-10] MEDS: ACETAMINOPHEN/HYDROcodone 325 MG/10 MG TAB PO PRN ×3 (09:33→18:16)
[2018-05-10 12:00] VITALS: BP 131/76; PULSE 93; RESP 17; TEMP 97.8; O2SAT 96
--- NOTE | 2018-05-10 12:17 | PD.CONS ---
HPI Service Urology Consult Requested By Giulia Lopez Reason for Consult Genital / Perineal cellulitis Primary Care Physician No Primary Care Physician Diagnosis: (1) Cellulitis of perineum ICD Code: L03.315 - Cellulitis of perineum (2) H/O Hodgkin's lymphoma ICD Code: Z85.71 - Personal history of Hodgkin lymphoma History of Present Illness 43-year-old male patient with past medical history which includes Hogkin's lymphoma in remission, with hx IV drug abuse uses dilaudid. Did not use it x 2 years. Patient presented overnight to [facility] emergency department after noticing a lump on his perineal area a day prior. Patient reports the area has gotten larger and more painful throughout the day therefore he proceeded to the emergency department for further evaluation and treatment. Patient denies having any drainage from the site and also denies injecting IV drugs at this area. Patient denies having any hematuria dysuria increased urinary frequency or urgency, difficulties with moving his bowels. Patient also denies fevers chills nausea vomiting diarrhea constipation shortness of breath or chest pain. He has mild leukocytosis on admission. Pelvic CT and US soft tissue c/w no abscess, inflammatory changes / cellulitis. He is on IV antbx. 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 Past Surgical History hx infusa port placed and removed 2 abscess with I&D Allergies: Coded Allergies: ofloxacin (Unverified Allergy, Severe, Itching, 05/09/18) STATES HIS EYES GET ITCHY SWOLLEN AND RED Family History Reviewed and noncontributory Social History EtOH use occasionally not on a daily basis Smokes one half pack cigarettes per day History of IV drug use reports he last used 2 years ago did use Dilaudid at that time Physical Exam Vital Signs Date Time Temp Pulse Resp B/P (MAP) Pulse Ox O2 Delivery O2 Flow Rate FiO2 05/10/18 08:00 97.3 83 18 123/80 (94) 98 05/10/18 03:02 98.6 75 17 111/66 (81) 97 05/09/18 22:22 99.0 98 16 125/76 (92) 98 Physical Exam GENERAL: This is a well-nourished, well-developed patient, in no apparent distress. HEAD: Atraumatic. Normocephalic. . NECK: Supple, nontender CARDIOVASCULAR: Regular rate and rhythm without murmurs, gallops, or rubs. RESPIRATORY: Clear to auscultation. Breath sounds equal bilaterally. No wheezes , rales, or rhonchi. GASTROINTESTINAL: Abdomen soft, non-tender, nondistended. . GENITOURINARY: Normal scrotal/testicular exam. Perineal swelling and tenderness , firm at the midline about 3-4cm length no Cecilio, no abscess. No discharge noted MUSCULOSKELETAL: Extremities without clubbing, cyanosis, or edema. NEUROLOGICAL: Awake and alert. Lab results reviewed: Yes Laboratory Tests Test 05/09/18 23:00 05/10/18 02:17 White Blood Count 12.6 Red Blood Count 4.91 Hemoglobin 16.3 Hematocrit 45.3 Mean Corpuscular Volume 92.3 Mean Corpuscular Hemoglobin 33.1 Mean Corpuscular Hemoglobin Concent 35.9 Red Cell Distribution Width 13.8 Platelet Count 165 Mean Platelet Volume 8.0 Neutrophils (%) (Auto) 64.8 Lymphocytes (%) (Auto) 22.1 Monocytes (%) (Auto) 11.8 Eosinophils (%) (Auto) 1.1 Basophils (%) (Auto) 0.2 Neutrophils # (Auto) 8.2 Lymphocytes # (Auto) 2.8 Monocytes # (Auto) 1.5 Eosinophils # (Auto) 0.1 Basophils # (Auto) 0.0 CBC Comment DIFF FINAL Differential Comment Blood Urea Nitrogen 14 Creatinine 1.06 Random Glucose 86 Total Protein 7.8 Albumin 4.3 Calcium Level 8.8 Alkaline Phosphatase 43 Aspartate Amino Transf (AST/SGOT) 26 Alanine Aminotransferase (ALT/SGPT) 45 Total Bilirubin 0.6 Sodium Level 139 Potassium Level 3.7 Chloride Level 104 Carbon Dioxide Level 25.1 Anion Gap 10 Estimat Glomerular Filtration Rate 77 Lactic Acid Level 0.7 C-Reactive Protein 2.70 Urine Color Straw Urine Turbidity CLEAR Urine pH 6.0 Urine Specific [place] 1.013 Urine Protein NEG Urine Glucose (UA) NEG Urine Ketones NEG Urine Occult Blood NEG Urine Nitrite NEG Urine Bilirubin NEG Urine Urobilinogen LESS THAN 2 Urine Leukocyte Esterase NEG Urine RBC LESS THAN 1 Urine WBC LESS THAN 1 Urine Bacteria RARE Microscopic Urinalysis Comment CULT NOT INDICATED Urine Opiates Screen NEG Urine Barbiturates Screen NEG Urine Amphetamines Screen NEG Urine Benzodiazepines Screen NEG Urine Cocaine Screen NEG Urine Cannabinoids Screen NEG Date/Time Source Procedure Growth Status 05/09/18 23:00 Blood Peripheral Aerobic Blood Culture - Preliminary NO GROWTH IN 1 DAY Resulted 05/09/18 23:00 Blood Peripheral Anaerobic Blood Culture - Preliminary NO GROWTH IN 1 DAY Resulted Result Diagram: 05/09/18 2300 05/09/18 2300 Personally reviewed images: Yes Imaging Last Impressions Pelvis CT 05/10/18 0000 Signed Impressions: CONCLUSION: 1. Some thickening of the subcutaneous fat with a questionable fluid collectio n is seen on the single image (image 70, series 602) Soft Tissue Ultrasound 05/09/18 0000 Signed Impressions: CONCLUSION: 1. Marked soft tissue swelling along the perineum. No drainable abscess Assessment and Plan Assessment and Plan 43y.o M with perineal cellulitis - No acute intervention needed - Continue treatment with IV antbx as per primary team - Consult ID to help with antbx management/regiment - Urology remains available as needed if not improving and symptoms will get worse Discussed Condition With Dr Fiona JADE attending who agrees with this plan Emmett Alva May 10, 2018 12:17
[2018-05-10] MEDS: VANCOMYCIN INJ 1,250 MG in SODIUM CHLOR 0.9% 250 ML INJ 250 ML IV SCH (15:47)
[2018-05-10 16:00] VITALS: BP 118/74; PULSE 68; RESP 16; TEMP 98; O2SAT 97
[2018-05-10 20:00] VITALS: BP 116/64; PULSE 75; RESP 20; TEMP 97.9; O2SAT 97
[2018-05-11] VITALS: BP 105/67; PULSE 76; RESP 20; TEMP 97.8; O2SAT 98
[2018-05-11] MEDS: PIPERACIL-TAZO 4.5 GM PREMIX 100 ML IV SCH ×4 (00:02→18:16)
[2018-05-11] MEDS: ACETAMINOPHEN/HYDROcodone 325 MG/10 MG TAB PO PRN ×6 (00:02→21:57)
[2018-05-11] MEDS: VANCOMYCIN INJ 1,250 MG in SODIUM CHLOR 0.9% 250 ML INJ 250 ML IV SCH ×2 (04:13→16:23)
[2018-05-11 08:00] VITALS: BP 113/69; PULSE 71; RESP 17; TEMP 97.8; O2SAT 97
[2018-05-11] MEDS: SODIUM CHLOR 0.9% 1000 ML INJ 1,000 ML IV SCH ×2 (08:35→21:57)
[2018-05-11] MEDS: DOCUSATE SODIUM 50 MG/SENNA 8.6 MG TAB PO SCH ×2 (08:35→21:57)
[2018-05-11] MEDS: SODIUM CHLORIDE 0.9% FLUSH 10 ML FLUSH IV FLUSH SCH ×2 (08:36→21:58)
[2018-05-11 10:12] LABS: AUTOMATED NEUTROPHIL # 4.8 TH/MM3 (1.8-7.7); BASOPHIL % 0.2 % (0.0-2.0); EOSINOPHIL # 0.1 TH/MM3 (0-0.4); EOSINOPHIL % 1.3 % (0.0-4.0); HEMATOCRIT 41.2 % (39.0-51.0); HEMOGLOBIN 14.2 GM/DL (13.0-17.0); LYMPH % 24.3 % (9.0-44.0); LYMPHOCYTE # 1.8 TH/MM3 (1.0-4.8); MEAN CORPUSCULAR HEMOGLOBIN 32.5 PG (27.0-34.0); MEAN CORPUSCULAR HGB CONC 34.6 % (32.0-36.0); MONO % 8.7 % (0.0-8.0); MONOCYTE # 0.6 TH/MM3 (0-0.9); NEUT % 65.5 % (16.0-70.0); PLATELET COUNT 126 TH/MM3 (150-450); RED BLOOD COUNT 4.38 MIL/MM3 (4.50-5.90); RED CELL DISTRIBUTION WIDTH 13.9 % (11.6-17.2); WHITE BLOOD COUNT 7.3 TH/MM3 (4.0-11.0)
[2018-05-11 10:41] LABS: BICARBONATE 27.4 MEQ/L (21.0-32.0); CALCIUM 8.5 MG/DL (8.5-10.1); CREATININE 0.99 MG/DL (0.60-1.30)
[2018-05-11 12:00] VITALS: BP 123/77; PULSE 88; RESP 17; TEMP 98; O2SAT 98
--- NOTE | 2018-05-11 14:53 | HHI.PR ---
Subjective Patient symptoms today Pt was seen this afternoon. no new c/o still admits same perineal pain. no fever. LAbs improving. On IV antbx. Objective Vital Signs Vital Signs Date Time Temp Pulse Resp B/P (MAP) Pulse Ox O2 Delivery O2 Flow Rate FiO2 05/11/18 13:09 18 05/11/18 12:00 98.0 88 17 123/77 (92) 98 05/11/18 08:00 97.8 71 17 113/69 (84) 97 05/11/18 00:00 97.8 76 20 105/67 (80) 98 05/10/18 20:00 97.9 75 20 116/64 (81) 97 05/10/18 16:00 98.0 68 16 118/74 (89) 97 Intake & Output 05/11/18 05/11/18 07:00 19:00 Intake Total 890 ml 1400 ml Balance 890 ml 1400 ml Intake Oral 240 ml 300 ml IV Total 650 ml 1100 ml # Voids 2 # Bowel Movements 0 Result Diagram: 05/11/18 0824 05/11/18 0804 Objective Remarks NAD RRR Lungs clear Abd soft NT : perineal midline swelling is the same may be slightly larger. + skin induration. no erythema. + firmness/tenderness Medications and IVs Current Medications Medications (Trade) Dose Ordered Sig/Francine Route Start Time Stop Time Status Last Admin Pharmacy Profile Note 0 ml @ 0 mls/hr UNSCH OTHER 05/10/18 01:45 Piperacillin Sod/ Tazobactam Sod 100 ml @ 200 mls/hr Q6H IV 05/10/18 06:00 05/11/18 11:39 Sodium Chloride 1,000 ml @ 100 mls/hr Q10H IV 05/10/18 02:00 05/11/18 08:35 (NS Flush) 2 ml UNSCH PRN IV FLUSH 05/10/18 01:45 (NS Flush) 2 ml BID IV FLUSH 05/10/18 09:00 (Tylenol) 650 mg Q6H PRN PO 05/10/18 01:45 ([place] 5-325 Mg) 1 tab Q4H PRN PO 05/10/18 01:45 ([place] 10-325 Mg) 1 tab Q4H PRN PO 05/10/18 01:45 05/11/18 12:09 (Narcan Inj) 0.4 mg UNSCH PRN IV PUSH 05/10/18 01:45 (Genevieve-Colace) 1 tab BID PO 05/10/18 09:00 05/11/18 08:35 (Milk Of Magnesia Liq) 30 ml Q12H PRN PO 05/10/18 01:45 (Senokot) 17.2 mg Q12H PRN PO 05/10/18 01:45 (Dulcolax Supp) 10 mg DAILY PRN RECTAL 05/10/18 01:45 (Lactulose Liq) 30 ml DAILY PRN PO 05/10/18 01:45 Vancomycin HCl 1250 mg/Sodium Chloride 262.5 ml @ 250 mls/hr Q12H IV 05/10/18 16:00 05/11/18 04:13 ([facility] [place] [place] [facility] Ordered Lab Info) SPECIFIC LAB TO BE ... ONCE ONCE .XX 05/11/18 15:45 05/11/18 15:46 Assessment and Plan Assessment and Plan 43y.o M with perineal cellulitis - No acute intervention needed now - Continue treatment with IV antbx as per primary team - Consult ID to help with antbx management/regiment - Urology continue to follow. Will discuss with Dr Jaimes pt's current condition and if any additional intervention needed Emmett Alva May 11, 2018 14:53
[2018-05-11] MEDS ORDERED: PHARMACY ORDERED LAB ONE (15:45)
[2018-05-11 16:00] VITALS: BP 122/75; PULSE 81; RESP 17; TEMP 97.9; O2SAT 98
--- NOTE | 2018-05-11 16:28 | HHI.PR ---
Subjective Remarks Pt c/o continued pain at base of scrotum. Objective Vitals Vital Signs Date Time Temp Pulse Resp B/P (MAP) Pulse Ox O2 Delivery O2 Flow Rate FiO2 05/11/18 16:00 97.9 81 17 122/75 (91) 98 05/11/18 13:09 18 05/11/18 12:00 98.0 88 17 123/77 (92) 98 05/11/18 08:00 97.8 71 17 113/69 (84) 97 05/11/18 00:00 97.8 76 20 105/67 (80) 98 05/10/18 20:00 97.9 75 20 116/64 (81) 97 05/11/18 05/11/18 05/12/18 15:00 23:00 07:00 Intake Total 1400 ml Balance 1400 ml Intake Oral 300 ml IV Total 1100 ml Result Diagram: 05/11/18 0824 05/11/18 0804 Imaging Last Impressions Pelvis CT 05/10/18 0000 Signed Impressions: CONCLUSION: 1. Some thickening of the subcutaneous fat with a questionable fluid collectio n is seen on the single image (image 70, series 602) Soft Tissue Ultrasound 05/09/18 0000 Signed Impressions: CONCLUSION: 1. Marked soft tissue swelling along the perineum. No drainable abscess Objective Remarks GENERAL: This is a well-nourished, well-developed patient, in no apparent distress. CARDIOVASCULAR: Regular rate and rhythm without murmurs, gallops, or rubs. RESPIRATORY: Clear to auscultation. Breath sounds equal bilaterally. No wheezes , rales, or rhonchi. GASTROINTESTINAL: Abdomen soft, non-tender, nondistended. Normal active bowel sounds MUSCULOSKELETAL: Extremities without clubbing, cyanosis, or edema. NEURO: Alert & Oriented x4 to person, place, time, situation. Moves all ext x4 skin: swelling noted at base of scrotum/perineal region A/P Problem List: (1) Cellulitis of perineum ICD Codes: L03.315 - Cellulitis of perineum Plan: - comgmt with Urology 43-year-old male patient presents emergency department with reports of a bump in his perineal area 1 day - Vancomycin (05/10 - present) - Zosyn (05/10 - present) - Diflucan (05/11 - present) - norco prn pain - SCD for DVT prophylaxis (2) H/O Hodgkin's lymphoma ICD Codes: Z85.71 - Personal history of Hodgkin lymphoma Status: Acute Plan: Patient history of Hodgkin's lymphoma currently in remission Tejinder Figueroa DO May 11, 2018 16:28
[2018-05-11] MEDS ORDERED: PILL SPLITTER OTHER PRN (17:15)
[2018-05-11] MEDS: FLUCONAZOLE 100 MG TAB PO SCH (18:17)
[2018-05-11 20:00] VITALS: BP 103/60; PULSE 78; RESP 18; TEMP 98; O2SAT 98
[2018-05-12] VITALS: BP 96/52; PULSE 68; RESP 18; TEMP 97.9; O2SAT 98
[2018-05-12] MEDS: PIPERACIL-TAZO 4.5 GM PREMIX 100 ML IV SCH ×4 (00:13→18:06)
[2018-05-12 04:00] VITALS: BP 121/61; PULSE 62; RESP 18; TEMP 97.9; O2SAT 98
[2018-05-12] MEDS: SODIUM CHLOR 0.9% 1000 ML INJ 1,000 ML IV SCH ×3 (05:05→17:06)
[2018-05-12] MEDS: VANCOMYCIN INJ 1,250 MG in SODIUM CHLOR 0.9% 250 ML INJ 250 ML IV SCH ×2 (05:05→17:05)
[2018-05-12] MEDS: ACETAMINOPHEN/HYDROcodone 325 MG/10 MG TAB PO PRN ×3 (05:08→17:06)
[2018-05-12 08:00] VITALS: BP 131/74; PULSE 66; RESP 17; TEMP 97.6; O2SAT 99
[2018-05-12] MEDS: SODIUM CHLORIDE 0.9% FLUSH 10 ML FLUSH IV FLUSH SCH ×2 (09:00→20:31)
[2018-05-12] MEDS: DOCUSATE SODIUM 50 MG/SENNA 8.6 MG TAB PO SCH ×2 (09:12→20:31)
[2018-05-12] MEDS: FLUCONAZOLE 100 MG TAB PO SCH (09:12)
[2018-05-12 12:00] VITALS: BP 121/77; PULSE 79; RESP 17; TEMP 97.9; O2SAT 98
[2018-05-12] MEDS ORDERED: DEXAMETHASONE SOD PHOS 4 MG/ML VIAL IV ONE (12:00)
[2018-05-12] MEDS ORDERED: PROPOFOL 200 MG/20 ML AMP IV ONE (12:00)
[2018-05-12] MEDS ORDERED: LIDOCAINE HCL 1% PF 5 ML SYRINGE OTHER ONE (12:00)
[2018-05-12] MEDS ORDERED: ONDANSETRON HCL 4 MG/2 ML VIAL IV ONE (12:00)
--- NOTE | 2018-05-12 14:02 | MB ---
cc: Ganga Arenas DO DATE: 05/12/2018 REASON FOR CONSULTATION: Second opinion. HISTORY OF PRESENT ILLNESS: This is a 43-year-old male who presents with perineal/scrotal pain over the last few days with swelling. He denies any fever or chills. Denies any difficulty with urination. He does have a history of prior skin abscess formation; however, it was on his back in the past. He does include a history of Hodgkin lymphoma of which he has been in remission for over 20 years, as well as a history of IV drug abuse. Currently, states he is not using any IV drugs. CT scan as well as an ultrasound showed some soft tissue swelling of the lower scrotum, but there was no fluid collection identified on the ultrasound or the CT scan. He has not been having any fever or chills. 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 PAST SURGICAL HISTORY: Lymph node resection, Infusaport placement, abscess with I and D. ALLERGIES: OFLOXACIN. FAMILY HISTORY: Denies history of prostate cancer. SOCIAL HISTORY: Alcohol use is on occasion. Smokes half pack of cigarettes a day. History of IV drug abuse, but has not used any in the last 2 years. REVIEW OF SYSTEMS: Noted scrotal/perineal pain with erythema and tenderness noted. Denies chest pain, shortness of breath, abdominal pain, constipation, urinary complaints, gait disturbances, bleeding or disorders. The remaining review of systems were reviewed and were negative. PHYSICAL EXAMINATION: VITAL SIGNS: Temperature is 98, heart rate 80, respiratory rate 17, blood pressure 123/77, 98% on room air. He is a well-developed, well-nourished, 43-year-old male in no acute distress. HEENT: Normocephalic, atraumatic. Pupils equal, round, regular and reactive to light. Extraocular movements intact. NECK: Supple. HEART: Regular rate and rhythm. LUNGS: Clear. ABDOMEN: Soft, nontender, and nondistended. GENITOURINARY: Normal phallus. Testes descended. He does have erythema with some fluctuance at the posterior aspect of the scrotum. It is painful to touch. Cremasteric reflexes are both present. EXTREMITIES: Show no evidence of cyanosis, clubbing, or edema. NEUROLOGIC: Cranial nerves 2-12 are intact. LABORATORY DATA: White count 7.3, hemoglobin 14.2, hematocrit 41.2, platelet count of 126. Sodium 143, potassium 4.0, chloride 108, CO2 of 27.4, BUN of 10, creatinine 0.9, glucose of 76. Urinalysis is negative. IMAGING STUDIES: Again, pelvic CT shows thickening of subcutaneous fat with questionable fluid collection is seen on the simple image 70 and the ultrasound shows marked soft tissue swelling along the perineum with no drainable abscess identified. ASSESSMENT AND PLAN: This is a 43-year-old male with scrotal cellulitis and possible abscess, n.p.o. for now and will schedule for incision and drainage in the operating room later today. Risks and benefits were discussed. The patient is willing to proceed. Given that this was seen by another physician, this physician was notified and concurred with present plan. Thank you for the consult and allowing me to participate in the care of this patient. DO ATILIO Bansal/HUY , 01:31 PM , 02:01 PM
--- NOTE | 2018-05-12 15:00 | HHI.PR ---
Subjective Patient symptoms today Pt was seen at the bedside. no improvement of perineal cellulitis/abscess and pain. no f/c/n/v. Pt was re consulted by Dr Arenas today. He is NPO now for I&D of perineal abscess later today. Objective Vital Signs Vital Signs Date Time Temp Pulse Resp B/P (MAP) Pulse Ox O2 Delivery O2 Flow Rate FiO2 05/12/18 08:00 97.6 66 17 131/74 (93) 99 05/12/18 04:00 97.9 62 18 121/61 (81) 98 05/12/18 00:00 97.9 68 18 96/52 (67) 98 05/11/18 20:00 98.0 78 18 103/60 (74) 98 05/11/18 17:32 18 05/11/18 16:00 97.9 81 17 122/75 (91) 98 Intake & Output 05/12/18 05/12/18 07:00 19:00 Intake Total 2200 ml 100 ml Balance 2200 ml 100 ml IV Total 2200 ml 100 ml # Voids 2 Result Diagram: 05/11/18 0824 05/11/18 0804 Objective Remarks NAD RRR Lungs clear Abd soft NT : perineal midline swelling is the same as yesterday + skin induration. no erythema. + firmness/tenderness Medications and IVs Current Medications Medications (Trade) Dose Ordered Sig/Francine Route Start Time Stop Time Status Last Admin Pharmacy Profile Note 0 ml @ 0 mls/hr UNSCH OTHER 05/10/18 01:45 Piperacillin Sod/ Tazobactam Sod 100 ml @ 200 mls/hr Q6H IV 05/10/18 06:00 05/12/18 11:48 Sodium Chloride 1,000 ml @ 100 mls/hr Q10H IV 05/10/18 02:00 05/12/18 05:05 (NS Flush) 2 ml UNSCH PRN IV FLUSH 05/10/18 01:45 (NS Flush) 2 ml BID IV FLUSH 05/10/18 09:00 (Tylenol) 650 mg Q6H PRN PO 05/10/18 01:45 ([place] 5-325 Mg) 1 tab Q4H PRN PO 05/10/18 01:45 ([place] 10-325 Mg) 1 tab Q4H PRN PO 05/10/18 01:45 05/12/18 09:13 (Narcan Inj) 0.4 mg UNSCH PRN IV PUSH 05/10/18 01:45 (Genevieve-Colace) 1 tab BID PO 05/10/18 09:00 05/12/18 09:12 (Milk Of Magnesia Liq) 30 ml Q12H PRN PO 05/10/18 01:45 (Senokot) 17.2 mg Q12H PRN PO 05/10/18 01:45 (Dulcolax Supp) 10 mg DAILY PRN RECTAL 05/10/18 01:45 (Lactulose Liq) 30 ml DAILY PRN PO 05/10/18 01:45 Vancomycin HCl 1250 mg/Sodium Chloride 262.5 ml @ 250 mls/hr Q12H IV 05/10/18 16:00 05/12/18 05:05 (Diflucan) 150 mg DAILY PO 05/11/18 17:00 05/12/18 09:12 (Pill Splitter) 1 ea UNSCH PRN OTHER 05/11/18 17:15 ([facility] [place] [facility] Ordered Lab Info) SPECIFIC LAB TO BE DRAWN: VANCO TROUGH DATE TO BE DRYogesh.. ONCE ONCE .XX 05/13/18 15:45 05/13/18 15:46 Assessment and Plan Assessment and Plan 43y.o M with perineal cellulitis Follow Dr Arenas recommendations for I&D of perineal abscess Emmett Alva May 12, 2018 15:00
--- NOTE | 2018-05-12 15:42 | HHI.PR ---
Subjective Remarks Pt frustrated by continued pain and swelling at base of scrotum/perineal region. Objective Vitals Vital Signs Date Time Temp Pulse Resp B/P (MAP) Pulse Ox O2 Delivery O2 Flow Rate FiO2 05/12/18 08:00 97.6 66 17 131/74 (93) 99 05/12/18 04:00 97.9 62 18 121/61 (81) 98 05/12/18 00:00 97.9 68 18 96/52 (67) 98 05/11/18 20:00 98.0 78 18 103/60 (74) 98 05/11/18 17:32 18 05/11/18 16:00 97.9 81 17 122/75 (91) 98 05/12/18 05/12/18 05/13/18 15:00 23:00 07:00 Intake Total 100 ml Balance 100 ml IV Total 100 ml Result Diagram: 05/11/18 0824 05/11/18 0804 Imaging Last Impressions Pelvis CT 05/10/18 0000 Signed Impressions: CONCLUSION: 1. Some thickening of the subcutaneous fat with a questionable fluid collectio n is seen on the single image (image 70, series 602) Soft Tissue Ultrasound 05/09/18 0000 Signed Impressions: CONCLUSION: 1. Marked soft tissue swelling along the perineum. No drainable abscess Objective Remarks GENERAL: This is a well-nourished, well-developed patient, in no apparent distress. CARDIOVASCULAR: Regular rate and rhythm without murmurs, gallops, or rubs. RESPIRATORY: Clear to auscultation. Breath sounds equal bilaterally. No wheezes , rales, or rhonchi. GASTROINTESTINAL: Abdomen soft, non-tender, nondistended. Normal active bowel sounds MUSCULOSKELETAL: Extremities without clubbing, cyanosis, or edema. NEURO: Alert & Oriented x4 to person, place, time, situation. Moves all ext x4 skin: swelling noted at base of scrotum/perineal region A/P Problem List: (1) Cellulitis of perineum ICD Codes: L03.315 - Cellulitis of perineum Plan: - comgmt with Urology - 43-year-old male patient presents emergency department with reports of a bump in his perineal area 1 day - Vancomycin (05/10 - present) - Zosyn (05/10 - present) - Diflucan (05/11 - present) - norco prn pain - SCD for DVT prophylaxis - Pt frustrated by continued pain and lack of improvement. - Pt requested that I obtain second Urology opinion - Pt seen by Dr. Arenas. He recommended I&D - Case d/w Dr. Jaimes (05/12) by phone. He graciously agreed that Dr. Arenas could proceed with I&D - Pt is planned for OR with Dr. Arenas later today for I&D. - Medical team appreciates input from both Dr. Jaimes and Dr. Arenas. (2) H/O Hodgkin's lymphoma ICD Codes: Z85.71 - Personal history of Hodgkin lymphoma Status: Acute Plan: Patient history of Hodgkin's lymphoma currently in remission Tejinder Figueroa DO May 12, 2018 15:42
[2018-05-12 16:00] VITALS: BP 135/69; PULSE 63; RESP 17; TEMP 98.3; O2SAT 97
[2018-05-12] MEDS ORDERED: BUPIVACAINE HCL PF 0.5% 30 ML VIAL ONE (18:25)
[2018-05-12] MEDS ORDERED: ACETAMINOPHEN 1000 MG/100 ML 100 ML IV ONE (18:44)
[2018-05-12] MEDS ORDERED: MORPHINE SULFATE 2 MG/ML SYRINGE IM PRN (19:15)
[2018-05-12] MEDS ORDERED: oxyCODONE/ACETAMINOPHEN 7.5 MG/325 MG TAB PO PRN (19:15)
--- NOTE | 2018-05-12 19:19 | PD.OP ---
Operative Report Date of Surgery: May 12, 2018 Preoperative Diagnosis: Perineal abscess Postoperative Diagnosis: Same Procedure: Incision and drainage of perineal abscess Anesthesia: General LMA Surgeon: Ganga Arenas Manager Telemetry(s): None Resident Surgeon: None Operation and Findings: 43-year-old male with history of perineal abscess. Decision made to bring the patient to the operating room to undergo incision and drainage of perineal abscess. Risk and benefits were discussed preoperatively the patient was willing to proceed. Patient was brought to the operating room and identified by myself as Mark Morales. He was placed in the supine position on the operating table with the legs in the frog-leg position. He was prepped and draped in usual sterile fashion, received preprocedure antibiotics and general LMA anesthesia was administered. 15 blade was used to make a 1 cm incision over the area of the abscess in the perineum. Pus was noted to drain from the area of the abscess. The wound was then irrigated with sterile saline and then half-inch packing was placed into the wound site. Fluffs and a scrotal support were then placed in position and he was awoken and extubated and transferred recovery in stable condition. He tolerated the procedure well. Ganga Arenas DO May 12, 2018 19:18
[2018-05-12] MEDS ORDERED: MIDAZOLAM HCL 2 MG/2 ML VIAL ONE (19:30)
[2018-05-12] MEDS ORDERED: MORPHINE SULFATE 4 MG/ML INJ ONE (19:30)
[2018-05-12] MEDS ORDERED: *morphine SULFATE 4 MG/ML PERIprocedure ONLY ONE (19:39)
[2018-05-12] MEDS ORDERED: *morphine SULFATE 10 MG/ML PERIprocedure ONLY ONE (19:47)
[2018-05-12 20:00] VITALS: BP 140/84; PULSE 62; RESP 18; TEMP 98.1; O2SAT 99
[2018-05-12] MEDS ORDERED: METOPROLOL TARTRATE 25 MG TAB PO PRN (21:00)
[2018-05-12] MEDS ORDERED: CHLORHEXIDINE GLUCONATE 2 % 1 PACK (2 CLOTHS) TOPICAL PRN (21:00)
[2018-05-12] MEDS ORDERED: LACTATED RINGER'S 1000 ML IV PRN (21:00)
[2018-05-12] MEDS ORDERED: SODIUM CHLORID 0.9% 500 ML IV PRN (21:00)
[2018-05-12] MEDS ORDERED: DO NOT ADM ANY ANTICOAGULANT DRUGS PRN (21:00)
[2018-05-12] MEDS ORDERED: POVIDONE IODINE 5% (ANTISEPSIS KIT) 4 APPLICATIONS EACH NARE PRN (21:00)
[2018-05-13] VITALS: BP 126/58; PULSE 67; RESP 18; TEMP 98.4; O2SAT 96
[2018-05-13] MEDS: PIPERACIL-TAZO 4.5 GM PREMIX 100 ML IV SCH ×3 (01:17→12:24)
[2018-05-13] MEDS: MORPHINE SULFATE 4 MG/ML INJ IM PRN ×3 (01:33→17:54)
[2018-05-13 04:00] VITALS: BP 117/68; PULSE 54; RESP 18; TEMP 98; O2SAT 97
[2018-05-13] MEDS: VANCOMYCIN INJ 1,250 MG in SODIUM CHLOR 0.9% 250 ML INJ 250 ML IV SCH ×3 (04:44→16:22)
[2018-05-13] MEDS: SODIUM CHLORIDE 0.9% FLUSH 10 ML FLUSH IV FLUSH SCH ×2 (07:40→20:33)
[2018-05-13 08:00] VITALS: BP 123/67; PULSE 55; RESP 17; TEMP 97.7; O2SAT 99
[2018-05-13] MEDS: DOCUSATE SODIUM 50 MG/SENNA 8.6 MG TAB PO SCH ×2 (08:34→20:33)
[2018-05-13] MEDS: FLUCONAZOLE 100 MG TAB PO SCH (08:34)
[2018-05-13] MEDS: SODIUM CHLOR 0.9% 1000 ML INJ 1,000 ML IV SCH ×2 (08:42→20:33)
[2018-05-13 12:00] VITALS: BP 139/74; PULSE 56; RESP 17; TEMP 99; O2SAT 99
--- NOTE | 2018-05-13 14:00 | HHI.PR ---
Subjective Patient symptoms today Pt seen and examined. Feeling better Objective Vital Signs Vital Signs Date Time Temp Pulse Resp B/P (MAP) Pulse Ox O2 Delivery O2 Flow Rate FiO2 05/13/18 12:00 99.0 56 17 139/74 (95) 99 05/13/18 08:00 97.7 55 17 123/67 (85) 99 05/13/18 04:00 98.0 54 18 117/68 (84) 97 05/13/18 00:00 98.4 67 18 126/58 (80) 96 05/12/18 20:00 98.1 62 18 140/84 (102) 99 05/12/18 20:00 97.7 69 14 150/91 (110) 96 Nasal Cannula 2 05/12/18 19:45 68 12 127/85 (99) 96 Nasal Cannula 2 05/12/18 19:30 71 14 122/78 (93) 98 Nasal Cannula 2 05/12/18 19:25 97.3 75 14 126/82 (97) 98 Nasal Cannula 2 05/12/18 16:00 98.3 63 17 135/69 (91) 97 Intake & Output 05/13/18 05/13/18 07:00 19:00 Intake Total 802.5 ml 1000 ml Output Total 610 ml Balance 192.5 ml 1000 ml Intake Oral 240 ml IV Total 262.5 ml 1000 ml Other 300 ml Output Urine Total 600 ml Estimated Blood Loss 10 ml # Voids 2 Result Diagram: 05/11/18 0824 05/11/18 0804 Objective Remarks NAD RRR Lungs clear Abd soft NT : perineal midline swelling is the same as yesterday + skin induration. no erythema. + firmness/tenderness 05/13 Abd:soft,nt,nd Wound: clean and dry. Erythema improving Medications and IVs Current Medications Medications (Trade) Dose Ordered Sig/Francine Route Start Time Stop Time Status Last Admin Pharmacy Profile Note 0 ml @ 0 mls/hr UNSCH OTHER 05/10/18 01:45 Piperacillin Sod/ Tazobactam Sod 100 ml @ 200 mls/hr Q6H IV 05/10/18 06:00 05/13/18 12:24 Sodium Chloride 1,000 ml @ 100 mls/hr Q10H IV 05/10/18 02:00 05/13/18 08:42 (NS Flush) 2 ml UNSCH PRN IV FLUSH 05/10/18 01:45 (NS Flush) 2 ml BID IV FLUSH 05/10/18 09:00 (Narcan Inj) 0.4 mg UNSCH PRN IV PUSH 05/10/18 01:45 (Genevieve-Colace) 1 tab BID PO 05/10/18 09:00 05/13/18 08:34 (Milk Of Magnesia Liq) 30 ml Q12H PRN PO 05/10/18 01:45 (Senokot) 17.2 mg Q12H PRN PO 05/10/18 01:45 (Dulcolax Supp) 10 mg DAILY PRN RECTAL 05/10/18 01:45 (Lactulose Liq) 30 ml DAILY PRN PO 05/10/18 01:45 Vancomycin HCl 1250 mg/Sodium Chloride 262.5 ml @ 250 mls/hr Q12H IV 05/10/18 16:00 05/13/18 04:44 (Diflucan) 150 mg DAILY PO 05/11/18 17:00 05/13/18 08:34 (Pill Splitter) 1 ea UNSCH PRN OTHER 05/11/18 17:15 [place] [place] Info) SPECIFIC LAB TO BE DRAWN: VANCO TROUGH DATE TO BE DRTiffani. ONCE ONCE .XX 05/13/18 15:45 05/13/18 15:46 (Percocet 7.5-325 Mg) 1 tab Q4H PRN PO 05/12/18 19:15 Lactated Ringer's 1,000 ml @ 30 mls/hr Q24H PRN IV 05/12/18 21:00 05/15/18 20:59 Sodium Chloride 500 ml @ 30 mls/hr [id number] PRN IV 05/12/18 21:00 05/15/18 20:59 (Lopressor) 25 mg [employer] PRN PO 05/12/18 21:00 05/15/18 20:59 (Betadine 5% Antisepsis Kit) 1 applic [employer] PRN EACH NARE 05/12/18 21:00 05/15/18 20:59 (Chlorhexidine 2% Cloth) 3 pack [employer] PRN TOPICAL 05/12/18 21:00 05/15/18 20:59 [place] [place] [facility] ALL NURSING DEPARTME... UNSCH PRN .XX 05/12/18 21:00 05/13/18 20:59 (Morphine Inj) 2 mg Q4H PRN IM 05/13/18 01:30 05/13/18 08:34 Assessment and Plan Assessment and Plan 43y.o M with perineal cellulitis Follow Dr Arenas recommendations for I&D of perineal abscess 05/13/18 43 y.o male s/p I&D of pernieal abcess Stable for discharge from standpoint Continue Sitz baths as outpt. Ganga Arenas DO May 13, 2018 14:00
[2018-05-13] MEDS: PHARMACY ORDERED LAB ONE ×2 (15:26→15:45)
[2018-05-13] MEDS ORDERED: CLIN150C14 PO (15:30)
--- NOTE | 2018-05-13 15:36 | HHI.DS ---
Discharge Summary Admission Date May 10, 2018 at 01:33 Discharge Date: May 14, 2018 Admitting Diagnosis Penineal Cellulitis (1) Cellulitis of perineum ICD Codes: L03.315 - Cellulitis of perineum (2) H/O Hodgkin's lymphoma ICD Codes: Z85.71 - Personal history of Hodgkin lymphoma Status: Acute Consultants Dr. Jaimes and Dr. Arenas, Urology Procedures Incision and drainage of perineal abscess on 05/12/[address] Arenas Brief History This a 43-year-old male patient with past medical history which includes Hodgkin 's lymphoma in remission, with hx IV drug abuse used Dilaudid, last injected 1- 2 years ago. Patient presented through the night to [facility] emergency department after noticing a lump on his perineal area Tuesday. Patient reports the area has gotten larger and more painful therefore he proceeded to the emergency department for further evaluation and treatment. 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 Patient denies having any drainage from the site and also denies injecting IV drugs at this area. Patient denies having any hematuria dysuria increased urinary frequency or urgency, difficulties with moving his bowels. Patient also denies fevers chills nausea vomiting diarrhea constipation shortness of breath or chest pain. CBC/BMP: 05/11/18 0824 05/11/18 0804 Significant Findings Laboratory Tests Test 05/11/18 08:04 05/11/18 08:24 05/11/18 15:45 Chloride Level 108 MEQ/L (98-107) Estimat Glomerular Filtration Rate 83 ML/MIN (>89) Red Blood Count 4.38 MIL/MM3 (4.50-5.90) Platelet Count 126 TH/MM3 (150-450) Monocytes (%) (Auto) 8.7 % (0.0-8.0) Vancomycin Level Trough 13.0 MCG/ML (5.0-10.0) Imaging Last Impressions Pelvis CT 05/10/18 0000 Signed Impressions: CONCLUSION: 1. Some thickening of the subcutaneous fat with a questionable fluid collectio n is seen on the single image (image 70, series 602) Soft Tissue Ultrasound 05/09/18 0000 Signed Impressions: CONCLUSION: 1. Marked soft tissue swelling along the perineum. No drainable abscess PE at Discharge GENERAL: This is a well-nourished, well-developed patient, in no apparent distress. CARDIOVASCULAR: Regular rate and rhythm without murmurs, gallops, or rubs. RESPIRATORY: Clear to auscultation. Breath sounds equal bilaterally. No wheezes , rales, or rhonchi. GASTROINTESTINAL: Abdomen soft, non-tender, nondistended. Normal active bowel sounds MUSCULOSKELETAL: Extremities without clubbing, cyanosis, or edema. NEURO: Alert & Oriented x4 to person, place, time, situation. Moves all ext x4 skin: swelling noted at base of scrotum/perineal region Hospital Course Cellulitis of perineum - comgmt with Urology - 43-year-old male patient presents emergency department with reports of a bump in his perineal area 1 day - Vancomycin (05/10 - present) - Zosyn (05/10 - 05/13) - Diflucan (05/11 - 05/13)) - Incision and drainage of perineal abscess on 05/12/[address] Arenas - patient initially packed in the OR. packing was removed by RN and new packing was not needed - surgical wound culture grew MRSA sensitive to Clindamycin - patient cleared for DC per Urology - patient to continue Sitz baths Q6H as an outpatient - patient to follow up with Urology in 1 month - SCD for DVT prophylaxis H/O Hodgkin's lymphoma Patient history of Hodgkin's lymphoma currently in remission Pt Condition on Discharge: Stable Discharge Disposition: Discharge Home Discharge Instructions DIET: Follow Instructions for: As Tolerated, No Restrictions Activities you can perform: Regular-No Restrictions Follow up Referrals: Urology - 1 Month with Ganga Arenas DO New Medications: Clindamycin (Clindamycin) 150 Mg Cap 450 MG PO Q8HR for Infection for 7 Days, CAP 0 Refills Giulia Lopez May 13, 2018 15:36
--- NOTE | 2018-05-13 15:58 | HHI.PR ---
Subjective Remarks Patient c/o post-operative pain, but feels better then he did pre-op asking when he can go home Objective Vitals Vital Signs Date Time Temp Pulse Resp B/P (MAP) Pulse Ox O2 Delivery O2 Flow Rate FiO2 05/13/18 12:00 99.0 56 17 139/74 (95) 99 05/13/18 08:00 97.7 55 17 123/67 (85) 99 05/13/18 04:00 98.0 54 18 117/68 (84) 97 05/13/18 00:00 98.4 67 18 126/58 (80) 96 05/12/18 20:00 98.1 62 18 140/84 (102) 99 05/12/18 20:00 97.7 69 14 150/91 (110) 96 Nasal Cannula 2 05/12/18 19:45 68 12 127/85 (99) 96 Nasal Cannula 2 05/12/18 19:30 71 14 122/78 (93) 98 Nasal Cannula 2 05/12/18 19:25 97.3 75 14 126/82 (97) 98 Nasal Cannula 2 05/12/18 16:00 98.3 63 17 135/69 (91) 97 05/13/18 05/13/18 05/14/18 15:00 23:00 07:00 Intake Total 1000 ml Balance 1000 ml IV Total 1000 ml Result Diagram: 05/11/18 0824 05/11/18 0804 Other Results Laboratory Tests Test 05/11/18 08:04 05/11/18 08:24 05/11/18 15:45 Blood Urea Nitrogen 10 MG/DL Creatinine 0.99 MG/DL Random Glucose 76 MG/DL Calcium Level 8.5 MG/DL Sodium Level 143 MEQ/L Potassium Level 4.0 MEQ/L Chloride Level 108 MEQ/L Carbon Dioxide Level 27.4 MEQ/L Anion Gap 8 MEQ/L Estimat Glomerular Filtration Rate 83 ML/MIN White Blood Count 7.3 TH/MM3 Red Blood Count 4.38 MIL/MM3 Hemoglobin 14.2 GM/DL Hematocrit 41.2 % Mean Corpuscular Volume 94.0 FL Mean Corpuscular Hemoglobin 32.5 PG Mean Corpuscular Hemoglobin Concent 34.6 % Red Cell Distribution Width 13.9 % Platelet Count 126 TH/MM3 Mean Platelet Volume 8.0 FL Neutrophils (%) (Auto) 65.5 % Lymphocytes (%) (Auto) 24.3 % Monocytes (%) (Auto) 8.7 % Eosinophils (%) (Auto) 1.3 % Basophils (%) (Auto) 0.2 % Neutrophils # (Auto) 4.8 TH/MM3 Lymphocytes # (Auto) 1.8 TH/MM3 Monocytes # (Auto) 0.6 TH/MM3 Eosinophils # (Auto) 0.1 TH/MM3 Basophils # (Auto) 0.0 TH/MM3 CBC Comment DIFF FINAL Differential Comment Vancomycin Level Trough 13.0 MCG/ML Microbiology Date/Time Source Procedure Growth Status 05/09/18 23:00 Blood Peripheral Aerobic Blood Culture - Preliminary NO GROWTH IN 4 DAYS Resulted 05/09/18 23:00 Blood Peripheral Anaerobic Blood Culture - Preliminary NO GROWTH IN 4 DAYS Resulted 05/12/18 19:06 Wound Other Fungal Smear - Final NO FUNGAL ELEMENTS SEEN. Resulted 05/12/18 19:06 Wound Other Fungal Culture Pending Resulted Imaging Last Impressions Pelvis CT 05/10/18 0000 Signed Impressions: CONCLUSION: 1. Some thickening of the subcutaneous fat with a questionable fluid collectio n is seen on the single image (image 70, series 602) Soft Tissue Ultrasound 05/09/18 0000 Signed Impressions: CONCLUSION: 1. Marked soft tissue swelling along the perineum. No drainable abscess Objective Remarks GENERAL: This is a well-nourished, well-developed patient, in no apparent distress. CARDIOVASCULAR: Regular rate and rhythm without murmurs, gallops, or rubs. RESPIRATORY: Clear to auscultation. Breath sounds equal bilaterally. No wheezes , rales, or rhonchi. GASTROINTESTINAL: Abdomen soft, non-tender, nondistended. Normal active bowel sounds MUSCULOSKELETAL: Extremities without clubbing, cyanosis, or edema. NEURO: Alert & Oriented x4 to person, place, time, situation. Moves all ext x4 skin: decrease in swelling base of scrotum/perineal region Procedures Incision and drainage of perineal abscess on 05/12/[address] Arenas A/P Problem List: (1) Cellulitis of perineum ICD Codes: L03.315 - Cellulitis of perineum Plan: - comgmt with Urology - 43-year-old male patient presents emergency department with reports of a bump in his perineal area 1 day - Vancomycin (05/10 - present) - Zosyn (05/10 - 05/12) - Diflucan (05/11 - 05/12) - Incision and drainage of perineal abscess on 05/12/[address] Arenas - patient initially packed in the OR. packing was removed by RN and new packing was not needed - patient cleared for DC per Urology - patient to continue Sitz baths Q6H as an outpatient - surgical wound culture growing MRSA, continue vancomyacin, DC Diflucan and Zosyn. - await sensitivity to determine DC abx. - norco prn pain - norco prn pain - SCD for DVT prophylaxis (2) H/O Hodgkin's lymphoma ICD Codes: Z85.71 - Personal history of Hodgkin lymphoma Status: Acute Plan: Patient history of Hodgkin's lymphoma currently in remission Assessment and Plan Patient examined. Assessment and plan formulated with Giulia Lopez PA-C. I agree with the above. intraoperative culture grown out MRSA. await final results. ABX narrowed to vancomycin. anticipate d/c to home 05/14. Giulia Lopez May 13, 2018 15:58 Tejinder Figueroa DO May 13, 2018 23:54
[2018-05-13 16:00] VITALS: BP 115/60; PULSE 60; RESP 17; TEMP 97.6; O2SAT 96
[2018-05-13 20:25] VITALS: BP 133/71; PULSE 80; RESP 18; TEMP 97.9; O2SAT 98
[2018-05-14 00:07] VITALS: BP 126/79; PULSE 77; RESP 20; TEMP 97.5; O2SAT 96
[2018-05-14] MEDS: VANCOMYCIN INJ 1,250 MG in SODIUM CHLOR 0.9% 250 ML INJ 250 ML IV SCH (04:00)
[2018-05-14] MEDS: SODIUM CHLOR 0.9% 1000 ML INJ 1,000 ML IV SCH (06:00)
[2018-05-14] MEDS: SODIUM CHLORIDE 0.9% FLUSH 10 ML FLUSH IV FLUSH SCH (06:47)
[2018-05-14] MEDS: DOCUSATE SODIUM 50 MG/SENNA 8.6 MG TAB PO SCH (07:59)
[2018-05-14 08:00] VITALS: BP 136/79; PULSE 52; RESP 17; TEMP 97.5; O2SAT 97
--- NOTE | 2018-05-14 11:03 | HHI.PR ---
Subjective Patient symptoms today Pt feels well. Ready for discharge. Objective Vital Signs Vital Signs Date Time Temp Pulse Resp B/P (MAP) Pulse Ox O2 Delivery O2 Flow Rate FiO2 05/14/18 08:00 97.5 52 17 136/79 (98) 97 05/14/18 00:07 97.5 77 20 126/79 (95) 96 05/13/18 20:25 97.9 80 18 133/71 (91) 98 05/13/18 16:00 97.6 60 17 115/60 (78) 96 05/13/18 12:00 99.0 56 17 139/74 (95) 99 Intake & Output 05/14/18 05/14/18 07:00 19:00 Intake Total 3022.5 ml Balance 3022.5 ml Intake Oral 760 ml IV Total 2262.5 ml # Voids 3 Result Diagram: 05/11/18 0824 05/11/18 0804 Objective Remarks NAD RRR Lungs clear Abd soft NT : perineal midline swelling is the same as yesterday + skin induration. no erythema. + firmness/tenderness 05/13 Abd:soft,nt,nd Wound: clean and dry. Erythema improving 05/14 Abd:soft,nt,nd Wound: healing well Medications and IVs Current Medications Medications (Trade) Dose Ordered Sig/Francine Route Start Time Stop Time Status Last Admin Pharmacy Profile Note 0 ml @ 0 mls/hr UNSCH OTHER 05/10/18 01:45 Sodium Chloride 1,000 ml @ 100 mls/hr Q10H IV 05/10/18 02:00 05/14/18 06:00 (NS Flush) 2 ml UNSCH PRN IV FLUSH 05/10/18 01:45 (NS Flush) 2 ml BID IV FLUSH 05/10/18 09:00 (Narcan Inj) 0.4 mg UNSCH PRN IV PUSH 05/10/18 01:45 (Genevieve-Colace) 1 tab BID PO 05/10/18 09:00 05/13/18 08:34 (Milk Of Magnesia Liq) 30 ml Q12H PRN PO 05/10/18 01:45 (Senokot) 17.2 mg Q12H PRN PO 05/10/18 01:45 (Dulcolax Supp) 10 mg DAILY PRN RECTAL 05/10/18 01:45 (Lactulose Liq) 30 ml DAILY PRN PO 05/10/18 01:45 Vancomycin HCl 1250 mg/Sodium Chloride 262.5 ml @ 250 mls/hr Q12H IV 05/10/18 16:00 05/14/18 04:00 (Pill Splitter) 1 ea UNSCH PRN OTHER 05/11/18 17:15 (Percocet 7.5-325 Mg) 1 tab Q4H PRN PO 05/12/18 19:15 Lactated Ringer's 1,000 ml @ 30 mls/hr Q24H PRN IV 05/12/18 21:00 05/15/18 20:59 Sodium Chloride 500 ml @ 30 mls/hr [id number] PRN IV 05/12/18 21:00 05/15/18 20:59 (Lopressor) 25 mg [employer] PRN PO 05/12/18 21:00 05/15/18 20:59 (Betadine 5% Antisepsis Kit) 1 applic [employer] PRN EACH NARE 05/12/18 21:00 05/15/18 20:59 (Chlorhexidine 2% Cloth) 3 pack [employer] PRN TOPICAL 05/12/18 21:00 05/15/18 20:59 (Morphine Inj) 2 mg Q4H PRN IM 05/13/18 01:30 05/13/18 17:54 [place] [place] [facility] [place] Info[place] SPECIFIC LAB TO BE ... ONCE ONCE .XX 05/16/18 03:45 05/16/18 03:46 Assessment and Plan Assessment and Plan 43y.o M with perineal cellulitis Follow Dr Arenas recommendations for I&D of perineal abscess 05/13/18 43 y.o male s/p I&D of pernieal abcess Stable for discharge from standpoint Continue Sitz baths as outpt. 05/14 Stable s/p I&D of perineal abcess Discharge home F/U one month in clinic Ganga Arenas DO May 14, 2018 11:03
[2018-05-14 12:00] VITALS: BP 135/73; PULSE 50; RESP 18; TEMP 97.2; O2SAT 97
--- NOTE | 2018-05-14 13:02 | HHI.PR ---
Subjective Remarks Patient reports feeling much better looking forward to DC wound culture shoed MRSA awaiting sensitivities Objective Vitals Vital Signs Date Time Temp Pulse Resp B/P (MAP) Pulse Ox O2 Delivery O2 Flow Rate FiO2 05/14/18 12:00 97.2 50 18 135/73 (93) 97 05/14/18 08:00 97.5 52 17 136/79 (98) 97 05/14/18 00:07 97.5 77 20 126/79 (95) 96 05/13/18 20:25 97.9 80 18 133/71 (91) 98 05/13/18 16:00 97.6 60 17 115/60 (78) 96 Result Diagram: 05/11/18 0824 05/11/18 0804 Other Results Laboratory Tests Test 05/11/18 15:45 05/13/18 15:50 Vancomycin Level Trough 13.0 MCG/ML 13.5 MCG/ML Imaging Last Impressions Pelvis CT 05/10/18 0000 Signed Impressions: CONCLUSION: 1. Some thickening of the subcutaneous fat with a questionable fluid collectio n is seen on the single image (image 70, series 602) Soft Tissue Ultrasound 05/09/18 0000 Signed Impressions: CONCLUSION: 1. Marked soft tissue swelling along the perineum. No drainable abscess Objective Remarks GENERAL: This is a well-nourished, well-developed patient, in no apparent distress. CARDIOVASCULAR: Regular rate and rhythm without murmurs, gallops, or rubs. RESPIRATORY: Clear to auscultation. Breath sounds equal bilaterally. No wheezes , rales, or rhonchi. GASTROINTESTINAL: Abdomen soft, non-tender, nondistended. Normal active bowel sounds MUSCULOSKELETAL: Extremities without clubbing, cyanosis, or edema. NEURO: Alert & Oriented x4 to person, place, time, situation. Moves all ext x4 skin: decrease in swelling base of scrotum/perineal region Procedures Incision and drainage of perineal abscess on 05/12/[address] Arenas A/P Problem List: (1) Cellulitis of perineum ICD Codes: L03.315 - Cellulitis of perineum Plan: - comgmt with Urology - 43-year-old male patient presents emergency department with reports of a bump in his perineal area 1 day - Vancomycin (05/10 - present) - Zosyn (05/10 - 05/12) - Diflucan (05/11 - 05/12) - Incision and drainage of perineal abscess on 05/12/[address] Arenas - patient initially packed in the OR. packing was removed by RN and new packing was not needed - patient cleared for DC per Urology - patient to continue Sitz baths Q6H as an outpatient - surgical wound culture growing MRSA, continue vancomycin, DC Diflucan and Zosyn. - await sensitivity to determine DC abx. - norco prn pain - SCD for DVT prophylaxis (2) H/O Hodgkin's lymphoma ICD Codes: Z85.71 - Personal history of Hodgkin lymphoma Status: Acute Plan: Patient history of Hodgkin's lymphoma currently in remission Giulia Lopez May 14, 2018 13:02
[2018-05-16] MEDS ORDERED: PHARMACY ORDERED LAB ONE (03:45)
== END 2018-05-14 14:12 | disposition home or self-care (01) | DRG 603 ==
LOC: NEPE 22:01 → NEDA 05-10 01:33 → N07B 05-10 02:53
PROVIDERS: ADMIT Family Medicine; ATTEND Hospitalist
PROC: 0J9B0ZX Drainage of Perineum Subcutaneous Tissue and Fascia, Open Approach, Diagnostic (ICD-10-PCS; principal; 2018-05-12 18:45)
DX: L02.215 Cutaneous abscess of perineum (principal); Z94.81 Bone marrow transplant status; L03.315 Cellulitis of perineum; F17.210 Nicotine dependence, cigarettes, uncomplicated; Z85.71 Personal history of Hodgkin lymphoma; B95.62 Methicillin resistant Staphylococcus aureus infection as the cause of diseases classified elsewhere
CPT/HCPCS: 72193; 76999; 80048; 80053; 80202; 80307; 81001; 83605; 85025; 86140; 86403; 87015; 87040; 87070; 87102; 87116; 87147; 87186; 87205; 87206; 96365; 96366; 96368; J0131; J1100; J1885; J2250; J2270; J2405; J2543; J3010; J3370; J7030; J7050; Q9967